=== PATIENT | male | born 1955 | race Caucasian/White ===

== ENCOUNTER 2021-01-21 10:35 | Observation (INO) | payer OTHER, MEDICARE, SELFPAY ==
[2021-01-21] VITALS (41 sets, daily range): BP systolic 128–238; BP diastolic 82–110; PULSE 73–103; RESP 7–31; TEMP 36.9–37.3; O2SAT 88–98; BMI 29.8
--- NOTE | 2021-01-21 10:52 | ECG_ITS ---
[facility] Test Date: 2021-01-21 Pat Name: Greg Duncan Department: Room: Gender: Male Living Skills Advisor: : 1955 Requested By: Moses Fong Order Number: [id number] Reading MD: LINDA NORTON Measurements Intervals [place] Rate: 81 P: 61 WI: 144 QRS: 53 QRSD: 92 T: 62 QT: 380 QTc: 442 Interpretive Statements SINUS RHYTHM MODERATE ST DEPRESSION [0.05+ mV ST DEPRESSION] Compared to ECG 11/04/2018 14:51:33 ST (T wave) deviation now present Intraventricular conduction delay no longer present Electronically Signed On 01-21-2021 18:45:02 DIRECTOR OF PRODUCT MANAGEMENT by LINDA NORTON [email or web address]/[id number] f
--- NOTE | 2021-01-21 10:52 | XRR_ITS ---
PROCEDURE INFORMATION: Exam: XR Chest Exam date and time: 01/21/2021 10:56 AM Age: 65 years old Clinical indication: Chest pain; Additional info: Dyspena cough TECHNIQUE: Imaging protocol: XR of the chest Views: 1 view. COMPARISON: CR Chest 1 [place] [id number] 10/10/2018 2:50 PM FINDINGS: Lungs: Unremarkable. No consolidation. Pleural spaces: Unremarkable. No pleural effusion. No pneumothorax. Heart/Mediastinum: Unremarkable. No cardiomegaly. Bones/joints: Unremarkable. XR/XR chest 1V portable [id number] IMPRESSION: No acute findings.
--- NOTE | 2021-01-21 11:08 | W.ED.CHESTPA ---
HPI - Chest Pain General: Chief Complaint: Chest Pain Stated Complaint: HTN, CP Time Seen by Provider: 01/21/21 10:45 History of Present Illness: HPI narrative: 85-year-old male presents emergency room with complaint of chest discomfort. He has has a history of elevated blood pressure recently. He previously has had a angioplasty with stenting this was done on 15 to 20 years ago. He has had a little bit of loose stool mostly states he just generally does not feel well. No vomiting. Denies significant shortness of breath. MD complaint: chest heaviness Pertinent past history: coronary artery disease Onset (ago): day(s) Relieving factors: nothing Exacerbating factors: nothing Associated symptoms: Reports dyspnea; Deny abdominal pain, diaphoresis, fever(s), leg edema, nausea, palpitations, sense of impending doom, syncope or vomiting Treatment prior to arrival: none Review of Systems Const: Denies: fever(s) or diaphoresis ENMT: Denies: throat pain, ear or mastoid pain, nasal discharge or nasal congestion Card: Denies: palpitations Resp: Reports: dyspnea GI: Denies: abdominal pain, nausea or vomiting : Denies: flank pain, dysuria, urinary frequency or urinary urgency Skin/Breast: Denies: rash or pruritus PFS ED PFSH: Medical History (Updated 01/23/21 @ 06:37 by Moses Casas DO) Atypical chest pain Coronary artery disease Elevated troponin Hypertensive urgency Physical Exam Const: COMMON NORMALS: no acute distress GENERAL APPEARANCE: cooperative and comfortable ORIENTATION/CONSCIOUSNESS: Yes awake, Yes oriented to person, Yes oriented to place and Yes oriented to time HENMT: COMMON NORMALS: normocephalic, atraumatic and hearing grossly normal bilaterally HEAD & SCALP: normocephalic and atraumatic Neck/C-Spine: COMMON NORMALS: no JVD Resp: COMMON NORMALS: normal respiratory effort, No retractions, No use of accessory muscles and clear to auscultation bilaterally AUSCULTATION: clear to auscultation bilaterally Cardio: COMMON NORMALS: no JVD, regular rate, regular rhythm and No murmurs present (Cardio) RATE: regular rate RHYTHM: regular rhythm GI: COMMON NORMALS: Soft to palpation and No hepatosplenomegaly present AUSCULTATION: Yes normoactive bowel sounds PALPATION: Yes Soft to palpation, No Tenderness to palpation present (GI), No Guarding due to palpation present (GI) and Yes No hepatosplenomegaly present Extremity: COMMON NORMALS: normal to inspection, capillary refill normal, no clubbing, cyanosis or edema, no calf tenderness and no pedal edema Neuro: SENSORIUM/ORIENTATION: Yes oriented to person, Yes oriented to place and Yes oriented to time Skin: COMMON NORMALS: no rashes or lesions noted GENERAL SKIN EXAM: no rashes or lesions noted Course Vital Signs: Vital signs: Vital Signs Temperature 97.8 F 01/22/21 16:00 Pulse Rate 77 01/22/21 16:00 Respiratory Rate 20 H 01/22/21 16:00 Blood Pressure 129/71 01/22/21 16:00 Pulse Oximetry 93 01/22/21 16:00 MDM - Chest Pain Lab Data: Labs: Lab Results 01/21/21 01/21/21 01/21/21 Range/Units 11:05 11:05 11:05 WBC 8.8 (4.0-10.0) 10^3/ uL RBC 4.20 (4.1-5.3) 10^6/u L Hgb 14.0 (11.7-16.6) g/dL Hct 40.6 L (42.0-52.0) % MCV 96.7 H (80-94) fL MCH 33.3 (28.0-34.0) pg MCHC 34.5 (30.0-36.0) g/dL RDW 14.2 (12.1-15.1) % Plt Count 225 (130-400) 10^3/c mm MPV 10.5 H (7.4-10.4) fL Neut % (Auto) 82.0 % Lymph % (Auto) 10.7 % [place] % (Auto) 5.9 % Eos % (Auto) 0.3 % Baso % (Auto) 0.9 % Neut # (Auto) 7.20 (1.8-7.7) 10^3/u L Lymph # (Auto) 0.9 (0.8-4.8) 10^3/u L [place] # (Auto) 0.5 (0.2-0.9) 10^3/u L Eos # (Auto) 0.0 (0.0-0.8) 10^3/u L Baso # (Auto) 0.1 (0.0-0.1) 10^3/u L Nucleated RBC % (a uto) 0 % Nucleated RBCs # 0.0 /100WBC Sodium 140 (136-145) mmol/L Potassium 4.1 (3.5-5.1) mmol/L Chloride 101 (98-107) mmol/L Carbon Dioxide 23 (22-29) mmol/L Anion Gap 20.1 H (5-19) BUN 9 (8-23) mg/dL Creatinine 0.9 (0.7-1.2) mg/dL GFR Calculation 84.7 L (90-130) mL/min Glucose 122 H (65-115) mg/dL Calculated Osmolal ity 290 (285-295) mOsm/k g Calcium 9.1 (8.5-10.5) mg/dL Total Bilirubin 0.6 (0.15-1.2) mg/dL AST 43 H (0-40) U/L ALT 48 H (0-41) U/L Alkaline Phosphata se 71 (40-130) IU/L Troponin T Baselin e 47 H (0-15) ng/L Troponin T 120 Min [place] (0-15) ng/L Delta Troponin T (0-10) ABS# Total Protein 6.7 (6.6-8.7) g/dL Albumin 4.2 (3.5-5.2) g/dL Globulin 2.5 (1.3-4.6) g/dL SARS-CoV-2 Ag (Rap id) (Negative) 01/21/21 01/21/21 Range/Units 11:09 13:03 WBC (4.0-10.0) 10^3/ uL RBC (4.1-5.3) 10^6/u L Hgb (11.7-16.6) g/dL Hct (42.0-52.0) % MCV (80-94) fL MCH (28.0-34.0) pg MCHC (30.0-36.0) g/dL RDW (12.1-15.1) % Plt Count (130-400) 10^3/c mm MPV (7.4-10.4) fL Neut % (Auto) % Lymph % (Auto) % [place] % (Auto) % Eos % (Auto) % Baso % (Auto) % Neut # (Auto) (1.8-7.7) 10^3/u L Lymph # (Auto) (0.8-4.8) 10^3/u L [place] # (Auto) (0.2-0.9) 10^3/u L Eos # (Auto) (0.0-0.8) 10^3/u L Baso # (Auto) (0.0-0.1) 10^3/u L Nucleated RBC % (a uto) % Nucleated RBCs # /100WBC Sodium (136-145) mmol/L Potassium (3.5-5.1) mmol/L Chloride (98-107) mmol/L Carbon Dioxide (22-29) mmol/L Anion Gap (5-19) BUN (8-23) mg/dL Creatinine (0.7-1.2) mg/dL GFR Calculation (90-130) mL/min Glucose (65-115) mg/dL Calculated Osmolal ity (285-295) mOsm/k g Calcium (8.5-10.5) mg/dL Total Bilirubin (0.15-1.2) mg/dL AST (0-40) U/L ALT (0-41) U/L Alkaline Phosphata se (40-130) IU/L Troponin T Baselin e (0-15) ng/L Troponin T 120 Min [place] 44.60 H (0-15) ng/L Delta Troponin T -2.40 L (0-10) ABS# Total Protein (6.6-8.7) g/dL Albumin (3.5-5.2) g/dL Globulin (1.3-4.6) g/dL SARS-CoV-2 Ag (Rap id) Negative (Negative) Discharge Plan Discharge Patient Disposition: Placed in Observation Admit Provider: German Martinez Clinical Impression: Accelerated hypertension, Chest pain, CAD (coronary artery disease) Coding Level of Care Code ED Periodicals Library Assistant for Ramog Fwd Exam Comprehensive
[2021-01-21 11:11] LABS: Basophils # 0.1 10^3/uL (0.0-0.1); Basophils % 0.9 %; Eosinophils % 0.3 %; Hematocrit 40.6 % (42.0-52.0); Lymphocytes # 0.9 10^3/uL (0.8-4.8); Lymphocytes % 10.7 %; Mean Corpuscular HGB Conc 34.5 g/dL (30.0-36.0); Mean Corpuscular Hemoglobin 33.3 pg (28.0-34.0); Mean Corpuscular Volume 96.7 fL (80-94); Mean Platelet Volume 10.5 fL (7.4-10.4); Monocytes # 0.5 10^3/uL (0.2-0.9); Monocytes % 5.9 %; Nucleated Red Blood Cells % 0 %; Platelet Count 225 10^3/cmm (130-400); Red Cell Distribution Width 14.2 % (12.1-15.1); White Blood Count 8.8 10^3/uL (4.0-10.0)
[2021-01-21 11:52] LABS: Alanine Aminotransferase 48 U/L (0-41); Albumin Level 4.2 g/dL (3.5-5.2); Alkaline Phosphatase 71 IU/L (40-130); Anion Gap 20.1 (5-19); Aspartate Amino Transferase 43 U/L (0-40); Blood Urea Nitrogen 9 mg/dL (8-23); Calcium 9.1 mg/dL (8.5-10.5); Carbon Dioxide 23 mmol/L (22-29); Chloride 101 mmol/L (98-107); Globulin 2.5 g/dL (1.3-4.6); Glomerular Filtration Rate 84.7 mL/min (90-130); Glucose 122 mg/dL (65-115); Osmolality Calculated 290 mOsm/kg (285-295); Potassium 4.1 mmol/L (3.5-5.1); Sodium 140 mmol/L (136-145); Total Bilirubin 0.6 mg/dL (0.15-1.2); Total Protein 6.7 g/dL (6.6-8.7)
[2021-01-21 11:55] LABS: Troponin(5th) Baseline 47 ng/L (0-15)
--- NOTE | 2021-01-21 12:29 | PC.NURSE ---
pt told staff that he felt sob and like he couldn't breathe well . Oxygenation 98% on room air. Pt wanting to use home inhalers. ER physician verbally gave ok.
[2021-01-21 12:40] LABS: SARS Covid-2 Antigen Negative (Negative)
--- NOTE | 2021-01-21 12:52 | ECG_ITS ---
[facility] Test Date: 2021-01-21 Pat Name: Greg Duncan Department: Room: Gender: Male Colorer Hides And Skins: : 1955 Requested By: Moses Fong Order Number: [id number] Reading MD: LINDA NORTON Measurements Intervals [place] Rate: 72 P: 61 CA: 161 QRS: 43 QRSD: 95 T: 46 QT: 403 QTc: 442 Interpretive Statements SINUS RHYTHM MODERATE ST DEPRESSION [0.05+ mV ST DEPRESSION] Compared to ECG 01/21/2021 10:42:00 No significant changes Electronically Signed On 01-21-2021 18:46:42 POURER OFF by LINDA NORTON [email or web address] [email or web address]'s choice medical center of smith countyAppetite+aultman hospitalOrtho-tag/store/OM/[id number]
[2021-01-21] MEDS: sodium chloride 0.9% 500 ML 999 ML IV (13:12)
[2021-01-21] MEDS: morphine 4 mg/mL SDV 1 mL IVP (14:16)
[2021-01-21] MEDS: metoprolol tartrate 1 mg/1 mL SDV 5 mL 5 MG IV (14:27)
[2021-01-21] MEDS: hyDRALAzine 20 mg/mL INJ 1 mL IVP (14:27)
[2021-01-21] MEDS: nicardipine 20 MG/200 ML PREMIX 50 MG IV (15:49)
[2021-01-21] MEDS: metoprolol succinate ER (24 HR) 50 mg Tablet PO (15:49)
[2021-01-21] MEDS: amlodipine 10 mg Tablet PO (15:50)
--- NOTE | 2021-01-21 16:04 | P.HP_ITS ---
Providers/Chief Complaint Admitting Physician: German Martinez MD Primary Care Provider: Baljeet Nieves Chief Complaint: HTN History of Present Illness Greg Duncan is a 65 year old male with past medical history of hypertension, coronary artery disease status post stent, was admitted with chief complaint of substernal chest pain, headache. Upon arrival in the ER he was worked up for above-mentioned complaint. He was found to have extremely high blood pressure highest recorded systolic blood pressure 238 and diastolic blood pressure 110. Troponin baseline: 47, 2-hour: 44 , delta 2 h: -2.40, troponin 6h : 41 delta 6- hour: -5.21 . EKG: Sinus rhythm with nonspecific ST-T changes. X-ray chest: No acute finding, no infiltrates, no pulmonary vascular congestion. ECA medication: Collagen 20 mg IV times 1 dose, metoprolol tartrate 5 mg IV x1 dose, metoprolol succinate 50 mg p.o. x1 dose, amlodipine 10 mg p.o. x1 dose. Morphine sulfate 4 mg IV times 1 dose. Review of Systems Const: Denies: fever(s) or chills Card: Denies: dyspnea on exertion, orthopnea or leg pain with exertion Resp: Denies: dyspnea, productive cough, wheezing or pain on inspiration GI: Denies: abdominal pain, nausea, vomiting, diarrhea or constipation Musc: Denies: back pain, extremity pain or extremity swelling Neuro: Denies: difficulty walking Medications/Allergies Home Medications Medication Instructions Recorded Confirmed Last Taken Type aspirin [Aspir-81] 81 mg PO ONCE 01/21/21 01/21/21 01/21/21 History budesonide-formoterol [Symbicort] 2 puff INHALATION BID 01/21/21 01/21/21 01/21/21 History cetirizine [Zyrtec] 10 mg PO DAILY@20 01/21/21 01/21/21 Unknown History gabapentin 800 mg PO TID@08,,01/21/21 01/21/21 01/21/21 08:00 History hydroxyzine HCl 25 mg PO TID PRN 01/21/21 01/21/21 01/21/21 History ipratropium-albuterol [Combivent 1 puff INHALATION QID PRN 01/21/21 01/21/21 01/21/21 History Respimat] metoprolol tartrate See Rx Instructions .ROUTE .COMPLEX 01/21/21 01/21/21 01/21/21 08:00 History mirtazapine 30 mg PO BEDTIME 01/21/21 01/21/21 Unknown History naproxen 250 mg PO BID PRN 01/21/21 01/21/21 01/21/21 History Allergies Allergy/AdvReac Type Severity Reaction Status Date / Time Penicillins Allergy ALGY-Anaphy Verified 01/21/21 11:57 laxis Vitals/I&O/Wt Last Vital Signs Temp 98.5 F 01/21/21 10:36 Pulse 82 01/21/21 15:59 Resp 16 01/21/21 15:59 BP 190/92 01/21/21 15:59 Pulse Ox 96 01/21/21 15:59 Weight last 48 hrs Weight 94.347 kg Physical Exam Narrative: EXAM NARRATIVE: Alert and awake. HENMT: COMMON NORMALS: normocephalic, atraumatic and external ears normal Chest: CHEST: Yes Symmetrical chest wall rise Resp: COMMON NORMALS: clear to auscultation bilaterally EFFORT & INSPECTION: Yes symmetric chest movement AUSCULTATION: clear to auscultation bilaterally Cardio: COMMON NORMALS: regular rate, regular rhythm, S1 normal heart sound p resent, S2 normal heart sound present, No gallops present (Cardio), No murmurs present (Cardio), No rub (Cardio) and Peripheral pulses 2+ throughout RATE: regular rate RHYTHM: regular rhythm HEART SOUNDS: S1 normal heart sound present and S2 normal heart sound present PERIPHERAL PULSES: Peripheral pulses 2+ throughout GI: AUSCULTATION: Yes normoactive bowel sounds PALPATION: Yes Soft to palpation and Yes No hepatosplenomegaly present RECTAL EXAM: Yes deferred Extremity: COMMON NORMALS: no clubbing, cyanosis or edema and no pedal edema Data : 01/21/21 11:05 01/21/21 11:05 A&P Assessment and plan (1) Hypertensive urgency: Amlodipine 10 mg p.o. Hydralazine 25 mg p.o. TID Monitor blood pressure 2D echo Status: Acute (2) Elevated troponin: Likely Type II M.I Status: Acute (3) Atypical chest pain: Atypical chest pain likely musculoskeletal. Status: Acute (4) Coronary artery disease: History of coronary artery disease status post. No acute intervention needed at this time Status: Acute Additional A&P Information DVT prophylaxsis: Lovenox 40 subcu daily CODE STATUS: Full code Attestations Medical Necessity Statement*: Patient needs to be in hospital for management of hypertensive urgency. Anticipated length of stay less than 2 midnights. Coding Level of Care Code Acute Bonded Strand Operator for Ramog Fwd Diagnoses Hypertensive urgency I16.0 Elevated troponin R77.8 Atypical chest pain R07.89 Coronary artery disease I25.10
--- NOTE | 2021-01-21 16:52 | ECG_ITS ---
[facility] Test Date: 2021-01-21 Pat Name: Greg Duncan Department: Room: 107 Gender: Male Atmospheric Chemist: : 1955 Requested By: Moses Fong Order Number: [id number] Reading MD: LINDA NORTON Measurements Intervals [place] Rate: 90 P: 58 RI: 157 QRS: 47 QRSD: 98 T: 60 QT: 386 QTc: 473 Interpretive Statements SINUS RHYTHM ST DEVIATION AND MODERATE T-WAVE ABNORMALITY, CONSIDER ANTERIOR ISCHEMIA [-0.1+ mV T WAVE IN V3/V4] Compared to ECG 01/21/2021 13:21:37 T-wave abnormality now present Possible ischemia now present ST (T wave) deviation no longer present Electronically Signed On 01-21-2021 18:46:26 COOPER HELPER by LINDA NORTON [email or web address] general hospitalCubiclregency hospital cleveland west.[employer]/store/OM/[id number]
--- NOTE | 2021-01-21 17:17 | PC.NURSE ---
FROM ER Received pt from ER via stretcher. Pt is alert, awake, oriented x4. Pt looked anxious and shaking. CIWA assessment score is 11. Nicardipine drip running from ER at 5 mg/hr on left AC. Pt stated his having difficulty urinating and pain when he urinates for the past day or 2. He felt pressure on his abdomen. Noted pt abdomen is distended and tight. Bladder scan and noted 350 in the scanner. Educated pt on the possibility of urine retention and if he agrees to have abernathy catheter inserted. pt verbalizes understanding and agreed for abernathy insertion. Notified Dr. Martinez on pt's difficulty urinating and the his bladder scan result. Notified him on pt's anxiety, distended abdomen. Received order read back to insert abernathy cath. and to give standing order for Ativan for [place]. oriented pt to staff. Provided pt with his call light use.
[2021-01-21] MEDS: LORazepam 2 mg Tablet PO ×2 (17:37→23:00)
[2021-01-21] MEDS: enoxaparin 40 mg/0.4 mL Syringe SUBCUT (17:55)
[2021-01-21] MEDS: oxyCODONE-APAP 5-325 mg Tablet 1 TAB PO ×2 (18:42→23:00)
--- NOTE | 2021-01-21 19:36 | PC.NURSE ---
Received report from YEIMI Guzmán. Patient resting in bed awake. Discussed COVID precautions and patient verbalized understanding stating, I have not been around anyone. Patient also stated, I have had several family members from COVID. Cardene drip running at 50ml/hr. BP monitored every 15min. Discussed goal of Cardene with patient and patient again verbalized understanding. Patient has abernathy catheter with pale, urine noted presently. Patient appears nervous but is pleasant and cooperative. Patient denies other needs. Has been medicated for pain and anxiety. No other distress observed.
[2021-01-21 20:02] LABS: Troponin 5 6HR 41.29 ng/L (0-15)
[2021-01-21 20:08] LABS: Troponin 5 6HR Delta -5.21 ng/L (0-12)
--- NOTE | 2021-01-21 20:17 | PC.NURSE ---
Current BP 128/87. Stopped Cardene drip for now. Will give HS medications and continue to monitor BP every 15 minutes. Patient tremors gone and reports feeling some relaxed. No distress observed.
[2021-01-21] MEDS: mirtazapine 30 mg Tablet PO (20:31)
[2021-01-21] MEDS: hyDRALAzine 25 mg Tablet PO (20:31)
[2021-01-21] MEDS: gabapentin 400 mg Capsule 800 MG PO (20:31)
[2021-01-21] MEDS: hyDROXYzine 25 mg Capsule PO (20:32)
[2021-01-22] VITALS (66 sets, daily range): BP systolic 71–196; BP diastolic 42–111; PULSE 72–102; RESP 5–28; TEMP 36.3–37.1; O2SAT 85–96
[2021-01-22] MEDS: nicardipine 20 MG/200 ML PREMIX 30 MG IV ×2 (02:07→05:47)
--- NOTE | 2021-01-22 02:13 | PC.NURSE ---
Patient c/o indigestion. Informed Dr Sequeira and received telephone orders for Maalox 15ml PO q4hr PRN and Pepcid 20mg PO bid. RBVO.
[2021-01-22] MEDS: alum-mag-hydroxide-sime 30 mL UDC 15 ML PO (02:18)
--- NOTE | 2021-01-22 02:21 | PC.NURSE ---
Patient c/o abdomen feeling real tight and distended. Patient reports having a bowel movement yesterday and says he pretty regular. Abdomen firm on palpation. Kaiser catheter in place. Patient reports feeling pressure on his bladder as well. Kaiser is draining clear straw colored urine. Patient reports craving ice which has been given to patient several times through out the night.
[2021-01-22] MEDS: LORazepam 2 mg Tablet PO (04:45)
[2021-01-22] MEDS: ondansetron 2 mg/ML SDV 2 mL 4 MG IVP (04:45)
--- NOTE | 2021-01-22 04:48 | PC.NURSE ---
Patient c/o nausea with vomiting. Patient has had one episode of vomiting with light brown, undigested food. Patient SBP 140s to mid 160s. Cardene drip at 7.5mg/hr. Monitoring BP every 15min presently. Medication given as ordered for nausea and per CIWA assessment.
[2021-01-22 05:31] LABS: Basophils # 0.1 10^3/uL (0.0-0.1); Basophils % 0.7 %; Eosinophils # 0.1 10^3/uL (0.0-0.8); Eosinophils % 1.2 %; Hematocrit 43.7 % (42.0-52.0); Hemoglobin 14.3 g/dL (11.7-16.6); Lymphocytes # 1.3 10^3/uL (0.8-4.8); Lymphocytes % 19.6 %; Mean Corpuscular HGB Conc 32.7 g/dL (30.0-36.0); Mean Corpuscular Hemoglobin 32.9 pg (28.0-34.0); Mean Corpuscular Volume 100.5 fL (80-94); Mean Platelet Volume 11.9 fL (7.4-10.4); Monocytes # 0.6 10^3/uL (0.2-0.9); Neutrophils # 4.68 10^3/uL (1.8-7.7); Neutrophils % 69.4 %; Nucleated Red Blood Cells % 0 %; Platelet Count 155 10^3/cmm (130-400); Red Blood Count 4.35 10^6/uL (4.1-5.3); Red Cell Distribution Width 14.6 % (12.1-15.1); White Blood Count 6.8 10^3/uL (4.0-10.0)
[2021-01-22 06:05] LABS: Alanine Aminotransferase 43 U/L (0-41); Albumin Level 4.4 g/dL (3.5-5.2); Alkaline Phosphatase 73 IU/L (40-130); Anion Gap 15.5 (5-19); Aspartate Amino Transferase 40 U/L (0-40); Blood Urea Nitrogen 10 mg/dL (8-23); Calcium 9.7 mg/dL (8.5-10.5); Carbon Dioxide 28 mmol/L (22-29); Chloride 95 mmol/L (98-107); Chol HDL Ratio 4.24 mg/dL (1.0-5.00); Cholesterol 195 mg/dL (0-200); Glomerular Filtration Rate 84.7 mL/min (90-130); Glucose 115 mg/dL (65-115); HDL Cholesterol 46 mg/dL (60-100); LDL Cholesterol Calculated 95 mg/dL (50-129); LDL HDL Ratio 2.07 RATIO (0.00-3.22); Osmolality Calculated 280 mOsm/kg (285-295); Potassium 3.5 mmol/L (3.5-5.1); Sodium 135 mmol/L (136-145); Thyroid Stimulating Hormone 2.19 uIU/mL (0.27-4.20); Total Protein 7.4 g/dL (6.6-8.7); Triglycerides 272 mg/dL (0-150)
[2021-01-22] MEDS: tamsulosin 0.4 mg Capsule PO (08:28)
[2021-01-22] MEDS: hyDROXYzine 25 mg Capsule PO (08:28)
[2021-01-22] MEDS: metoprolol tartrate 50 mg Tablet PO (08:28)
[2021-01-22] MEDS: gabapentin 400 mg Capsule 800 MG PO (08:29)
[2021-01-22] MEDS: famotidine 20 mg Tablet PO (08:29)
[2021-01-22] MEDS: hyDRALAzine 25 mg Tablet PO ×2 (08:29→15:31)
--- NOTE | 2021-01-22 12:16 | USCV_ITS ---
Greg Duncan Age: 65 Gender: M : 1955 Exam Date: 01/22/2021 13:08 Ordering Phys: German Martinez MD Technologist: Jes Oropeza Exam Location: [facility] Indication: Chest pain BP: 125 / 78 HR: 84 Rhythm: Sinus Technical Quality: Fair MEASUREMENTS (Male / Female) Normal Values 2D ECHO LV Diastolic Diameter PLAX 3.7 cm 4.2 - 5.9 / 3.9 - 5.3 cm LV Systolic Diameter PLAX 2.1 cm LV Chamber Size 3.7 cm IVS Diastolic Thickness 1.3 cm 0.6 - 1.0 / 0.6 - 0.9 cm IVS Systolic Thickness 1.9 cm LVPW Diastolic Thickness 1.1 cm 0.6 - 1.0 / 0.6 - 0.9 cm LVPW Systolic Thickness 1.1 cm RV Chamber Size 1.8 cm LVOT Diameter 2.0 cm LV Ejection Fraction 2D Teich 76.6 % LV Ejection Fraction MOD 2C 63.1 % LV Ejection Fraction 2C AL 63.7 % LA Diameter 2.3 cm LA Width 2.8 cm LA Height 4.6 cm RA Width 2.4 cm RA Height 4.8 cm Aorta at Sinotubular Diameter 2.2 cm M-MODE LV Diastolic Diameter MM 6.6 cm 4.2 - 5.9 / 3.9 - 5.3 cm LV Systolic Diameter MM 4.4 cm LV Ejection Fraction MM Teich 59.5 % IVS Diastolic Thickness MM 0.7 cm 0.6 - 1.0 / 0.6 - 0.9 cm IVS Systolic Thickness MM 1.2 cm LVPW Diastolic Thickness MM 1.0 cm 0.6 - 1.0 / 0.6 - 0.9 cm LVPW Systolic Thickness MM 1.6 cm RV Diastolic Diameter MM 0.6 cm Aortic Annulus Diameter 3.0 cm LA Ao Ratio MM 0.9 MV E Point Septal Separation 0.6 cm DOPPLER AV Peak Velocity 171.0 cm/s LVOT Peak Velocity 118.0 cm/s AV Area Cont Eq vti 2.6 cm squared AV Area Cont Eq pk 2.1 cm squared MV Area PHT 3.7 cm squared Mitral E to A Ratio 0.9 MV E' Velocity 44.0 cm/s Mitral E to MV E' Ratio 9.2 Mitral E to LV E' Lateral Ratio 8.0 Mitral E to LV E' Septal Ratio 10.7 TV Peak E Velocity 57.0 cm/s PV Peak Velocity 80.0 cm/s RV Acceleration Time 0.1 s RV Ejection Time 0.3 s RV AcT/ET 0.3 FINDINGS Left Ventricle Normal left ventricular cavity size. Normal left ventricular systolic function. No regional wall motion abnormalities. Left ventricular ejection fraction is estimated at 59 %. Grade I/IV diastolic dysfunction (abnormal relaxation filling pattern), normal to mildly elevated filling pressures. Right Ventricle The right ventricle is normal in size and function. Right Atrium The right atrium is normal in size. Left Atrium The left atrium is normal in size. Mitral Valve Structurally normal mitral valve without significant stenosis or prolapse. There is no mitral regurgitation. Aortic Valve Aortic valve sclerosis without stenosis or regurgitation. Tricuspid Valve Structurally normal tricuspid valve without significant stenosis or regurgitation. Pulmonary artery systolic pressure is normal. Pulmonic Valve Structurally normal pulmonic valve without significant stenosis. There is no pulmonic regurgitation. Pericardium Normal pericardium without effusion. Aorta Normal ascending aorta dimension. CONCLUSIONS 1-Normal left ventricular cavity size. Normal left ventricular systolic function. No regional wall motion abnormalities. Left ventricular ejection fraction is estimated at 59 %. Grade I/IV diastolic dysfunction (abnormal relaxation filling pattern), normal to mildly elevated filling pressures. 2-There is no pericardial effusion. 3-No significant valve abnormalities. 4-Right atrial pressure is around 5 mm of mercury. 5-No significant change since the prior echocardiogram study of 10/11/2018. Jacqueline Walker MD (Electronically Signed) Final Date: 22 January 2021 15:00 S
--- NOTE | 2021-01-22 13:17 | PC.NURSE ---
removed abernathy at 1300, intact, no issues
--- NOTE | 2021-01-22 15:29 | PM.DCS ---
Discharge Providers Date of Admission: 01/21/21 15:43 Date of Discharge: January 22, 2021 Attending Provider at Admission: German Martinez MD Attending Provider at Discharge: German Martinez MD Primary Care Provider: Baljeet Nieves Diagnoses at Discharge Discharge Diagnosis (1) Hypertensive urgency: Permanent problem details: Resolved (2) Elevated troponin: (3) Atypical chest pain: (4) Coronary artery disease: Reason for Visit Reason for Visit: HTN Hospital Course Hospital Course Greg Duncan is a 65 year old male with past medical history of hypertension, coronary artery disease status post stent, was admitted with chief complaint of substernal chest pain, headache. Upon arrival in the ER he was worked up for above-mentioned complaint. He was found to have extremely high blood pressure highest recorded systolic blood pressure 238 and diastolic blood pressure 110. Troponin baseline: 47, 2-hour: 44 , delta 2 h: -2.40, troponin 6h : 41 delta 6-hour: -5.21 . EKG: Sinus rhythm with nonspecific ST-T changes. X-ray chest: No acute finding, no infiltrates, no pulmonary vascular congestion. ECA medication: Hydralazine 20 mg IV times 1 dose, metoprolol tartrate 5 mg IV x1 dose, metoprolol succinate 50 mg p.o. x1 dose, amlodipine 10 mg p.o. x1 dose. Morphine sulfate 4 mg IV times 1 dose.He was admitted for the management of Hypertensive urgency as well as chest pain.He was continued on nicardipine drip and was later transitioned to PO amlodipine 10 mg oral daily on discharge as well as metroprolol succinate 50 mg po daily on discharge.While inpatient 2D Echo was done as a part of chest pain work up: Normal left ventricular cavity size. Normal left ventricular systolic function. No regional wall motion abnormalities. Left ventricular ejection fraction is estimated at 59 %. Grade I/IV diastolic dysfunction (abnormal relaxation filling pattern), normal to mildly elevated filling pressures. There is no pericardial effusion. No significant valve abnormalities. Right atrial pressure is around 5 mm of mercury. U/S Abdomen was also done as he was complaining of episatric discomfort: Hepatic steatosis. Echogenic foci in the lower kidneys, likely representing nonobstructing stones.At the time of discharge he was not complaining of any chest pain.It is likely that the chest pain was atypical or 2/2 to demand ischemia due to accelerated hypertension. His blood pressure was well controlled on discharge.Rapid COVID Testing was negative.He was discharged in stable condition to follow up with his PCP as outpatient. Physical Exam Narrative: EXAM NARRATIVE: Alert and awake. HENMT: COMMON NORMALS: normocephalic, atraumatic and external ears normal HEAD & SCALP: normocephalic and atraumatic EXTERNAL EAR: Yes external ears normal Chest: CHEST: Yes Symmetrical chest wall rise Resp: COMMON NORMALS: clear to auscultation bilaterally EFFORT & INSPECTION: Yes symmetric chest movement AUSCULTATION: clear to auscultation bilaterally Cardio: COMMON NORMALS: regular rate, regular rhythm, S1 normal heart sound present, S2 normal heart sound present, No gallops present (Cardio), No murmurs present (Cardio), No rub (Cardio) and Peripheral pulses 2+ throughout RATE: regular rate RHYTHM: regular rhythm HEART SOUNDS: S1 normal heart sound present and S2 normal heart sound present PERIPHERAL PULSES: Peripheral pulses 2+ throughout GI: COMMON NORMALS: Soft to palpation and No hepatosplenomegaly present AUSCULTATION: Yes normoactive bowel sounds PALPATION: Yes Soft to palpation and Yes No hepatosplenomegaly present RECTAL EXAM: Yes deferred Extremity: COMMON NORMALS: no clubbing, cyanosis or edema and no pedal edema Urinary Catheter Management^: [facility] Late[employer] Free: Cath Placed During This Visit: yes Reason for Continuing Indwelling Catheter: Acute Urinary Retention or Obstruction Urinary Catheter Date of Insertion: 01/21/21 Urinary Catheter Time of Insertion: 19:30 Discharge Data Data Completed and Pending: Completed Studies During Hospitalization Category Date Time Status XR chest 1V [place] ble [id number] Stat Exams 01/21/21 10:52 Completed CV echo complete* [id number] Routine Ultrasound 01/22/21 12:16 Completed US abdomen comple te* [id number] Routine Ultrasound 01/22/21 18:10 Completed Pending at discharge Category Date Time Status Complete Blood Co unt w/Auto AM LABS Lab 01/23/21 04:00 Ordered Complete Blood Co unt w/Auto AM LABS Lab 01/24/21 04:00 Ordered Comprehensive Met abolic Panel AM LA BS Lab 01/23/21 04:00 Ordered Comprehensive Met abolic Panel AM LA BS Lab 01/24/21 04:00 Ordered Coronavirus Test [facility] Lab 01/21/21 13:15 Received Labs from last 24 hours 01/22/21 01/22/21 01/21/21 04:21 04:21 19:15 WBC 6.8 RBC 4.35 Hgb 14.3 Hct 43.7 MCV 100.5 H MCH 32.9 MCHC 32.7 D RDW 14.6 Plt Count 155 MPV 11.9 H Neut % (Auto) 69.4 Lymph % (Auto) 19.6 Louisa % (Auto) 9.0 Eos % (Auto) 1.2 Baso % (Auto) 0.7 Neut # (Auto) 4.68 Lymph # (Auto) 1.3 [place]a # (Auto) 0.6 Eos # (Auto) 0.1 Baso # (Auto) 0.1 Nucleated RBC % (a uto) 0 Nucleated RBCs # 0.0 Sodium 135 L Potassium 3.5 Chloride 95 L Carbon Dioxide 28 Anion Gap 15.5 BUN 10 Creatinine 0.9 GFR Calculation 84.7 L Glucose 115 Calculated Osmolal ity 280 L Calcium 9.7 Total Bilirubin 1.0 AST 40 ALT 43 H Alkaline Phosphata se 73 Troponin T Hi Sens 6Hr 41.29 H Troponin T Hi Sens 6Hr Delta -5.21 L Total Protein 7.4 Albumin 4.4 Globulin 3.0 Triglycerides 272 H Cholesterol 195 LDL Cholesterol, C alc 95 HDL Cholesterol 46 L LDL/HDL Ratio 2.07 Cholesterol/HDL Ra felisha 4.24 TSH 2.19 Vitals: Last Vital Signs Temp 97.8 F 01/22/21 14:54 Pulse 77 01/22/21 14:54 Resp 20 H 01/22/21 14:54 BP 129/71 01/22/21 14:54 Pulse Ox 93 01/22/21 14:54 Discharge Plan Discharge Patient Disposition: Home Condition: Stable Prescriptions: New amlodipine 10 mg tablet 10 mg PO DAILY Qty: 30 RF: 0 metoprolol succinate 50 mg tablet extended release 24 hr 50 mg PO DAILY Qty: 30 RF: 0 Continued Zyrtec 10 mg Tablet 10 mg PO DAILY@20 RF: 0 naproxen 250 mg Tablet 250 mg PO BID PRN (Reason: Pain) RF: 0 aspirin 81 mg Tablet,Delayed Release (Dr/Ec) 81 mg PO ONCE RF: 0 gabapentin 800 mg Tablet 800 mg PO TID@08,12,20 RF: 0 mirtazapine 30 mg Tablet 30 mg PO BEDTIME RF: 0 hydroxyzine HCl 25 mg Tablet 25 mg PO TID PRN (Reason: Anxiety) RF: 0 Symbicort 160-4.5 mcg/actuation Hfa Aerosol Inhaler 2 puff INHALATION BID RF: 0 Combivent Respimat 20-100 mcg/actuation Mist 1 puff INHALATION QID PRN (Reason: Shortness Of Breath) RF: 0 Discontinued metoprolol tartrate 100 mg Tablet See Rx Instructions .ROUTE .COMPLEX RF: 0 Discharge Orders: Discharge Order (Routine); Ordered 01/22/21 Ordered By: German Martinez Referrals: Baljeet Nieves [Primary Care Provider] - 4-7 days (Please call [facility] for an follow-up appointment in 4 to 7 days. ) Discharge Diet: Low Salt Discharge Activity: Resume usual activity Patient Instructions: Metoprolol (By mouth), Amlodipine (By mouth), Coronary Artery Disease (DC), Hypertension (DC), Chest Pain Stoplight Discharge Attestations Time Spent in Discharge Care*: less than 30 min Specific Discharge Activities: educating patient, educating and/or supporting family/caregiver, discussing with case packer and sealer/social workers/dc planners, documenting/other paperwork and evaluating patient/reviewing data Status at Discharge: Cognitive status at discharge: cognitively intact, Behavioral status at discharge: cooperative, Functional status at discharge: independent ambulation Overall status at discharge: patient is back to baseline Quality Metrics Clinical Quality Measures During this hospital stay, did patient experience: None Coding Level of Care Code Acute Waiter/Waitress Head for Lucio Cook Diagnoses Hypertensive urgency I16.0 Elevated troponin R77.8 Atypical chest pain R07.89 Coronary artery disease I25.10
--- NOTE | 2021-01-22 16:30 | PC.NURSE ---
Patient removed own IV from the left arm. Site was oozing bright red blood and patient was using a paper towel to dab at site. I applied a dressing and coban to site.
--- NOTE | 2021-01-22 18:10 | USR_ITS ---
PROCEDURE INFORMATION: Exam: US Abdomen Complete Exam date and time: 01/22/2021 7:43 AM Age: 65 years old Clinical indication: Abdominal pain; Epigastric; Additional info: Episatric tenderness TECHNIQUE: Imaging protocol: Real-time ultrasound of the abdomen with image documentation. COMPARISON: No relevant prior studies available. FINDINGS: Liver: The left hepatic lobe is partially obscured by overlying bowel gas. Liver is diffusely increased in echogenicity, most commonly seen in hepatic steatosis, though other forms of parenchymal liver disease could have a similar appearance. This limits evaluation for subtle isoechoic masses but no masses are seen. Patent main portal vein with normal direction of flow. Gallbladder: Normal. No gallstones. There is no gallbladder wall thickening. Negative sonographic Avendano's sign. Common bile duct: Normal. No stones. No dilation. Pancreas: The pancreas is obscured by overlying bowel gas. Right kidney: Normal echogenicity. There is a small echogenic focus in the right lower kidney, which may represent a nonobstructing stone. No mass. No hydronephrosis. Left kidney: Normal echogenicity. There is a small echogenic foci in the left lower kidney, which may represent nonobstructing stones. No mass. No hydronephrosis. Spleen: Normal. No splenomegaly. Inferior vena cava: Normal. US/US abdomen complete* [id number] IMPRESSION: 1. Hepatic steatosis. 2. Echogenic foci in the lower kidneys, likely representing nonobstructing stones.
[2021-01-23 16:51] LABS: Coronavirus Test Green County Not Detected
== END 2021-01-22 16:45 | disposition home or self-care (01) ==
LOC: ER 11:40 → CSU 01-22 06:35
PROVIDERS: Admitting Provider Internal Medicine; Emergency Provider Family Medicine; PCP Family Medicine; Visit Provider Internal Medicine
DX: I16.0 Hypertensive urgency (principal); R77.8 Other specified abnormalities of plasma proteins; R07.89 Other chest pain; I25.10 Atherosclerotic heart disease of native coronary artery without angina pectoris; Z95.5 Presence of coronary angioplasty implant and graft
CPT/HCPCS: 36415; 51702; 51798; 71045; 76700; 80053; 80061; 84443; 84484; 85025; 87426; 87635; 93005; 93306; 94640; 94664; 96365; 96372; 96375; 99285; G0378; J0360; J1650; J2270; J2405; J3490; J7040

== ENCOUNTER → 2021-03-23 09:33 | Outpatient (BNVA) | payer OTHER, SELFPAY | PROVIDERS: PCP Family Medicine; Visit Provider Internal Medicine Critical Care Medicine | DX: Z20.822 Contact with and (suspected) exposure to COVID-19 (principal); Z11.52 Encounter for screening for COVID-19 | CPT/HCPCS: 87635 ==

== ENCOUNTER 2021-03-29 08:30 | Outpatient (CLI) | payer OTHER, MEDICARE, SELFPAY ==
--- NOTE | 2021-03-29 14:44 | PFTS_ITS ---
Date of Study:03/29/21 Date of Dictation: 03/31/2021 MECHANICS: Postbronchodilator forced vital capacity (FVC) is normal. Postbronchodilator forced expiratory volume in one second (FEV1) is mildly reduced 81%. FEV1/FVC is reduced.. There is significant response to bronchodilators.. FLOW VOLUME LOOP: Sloping of expiratory limb suggestive of airway obstruction . LUNG VOLUMES: Total lung capacity (TLC) is normal. Residual volume (RV) is increased to 192% suggestive of severe air trapping DIFFUSING CAPACITY FOR CARBON MONOXIDE: Mild reduction in gas transfer 69% . INTERPRETATION: The PFTs are consistent with mild obstructive ventilatory defect. There is significant bronchodilator response. Lung volumes show severe air trapping and hyperinflation. There is mild gas transfer defect. Correlate clinically. MTDD
== END 2021-03-29 08:31 | disposition home or self-care (01) ==
LOC: RT 08:33
PROVIDERS: PCP Family Medicine; Visit Provider Internal Medicine Critical Care Medicine
DX: Z12.2 Encounter for screening for malignant neoplasm of respiratory organs (principal); F17.210 Nicotine dependence, cigarettes, uncomplicated
CPT/HCPCS: 94060; 94726; 94729; J7611

== ENCOUNTER → 2022-09-04 08:08 | Outpatient (BNVA) | payer OTHER, SELFPAY | PROVIDERS: PCP Family Medicine; Visit Provider Internal Medicine Rheumatology | DX: M15.9 Polyosteoarthritis, unspecified (principal); Z79.899 Other long term (current) drug therapy; M06.041 Rheumatoid arthritis without rheumatoid factor, right hand; M06.042 Rheumatoid arthritis without rheumatoid factor, left hand; Z11.59 Encounter for screening for other viral diseases; Z11.1 Encounter for screening for respiratory tuberculosis; Z79.52 Long term (current) use of systemic steroids; Z71.85 Encounter for immunization safety counseling | CPT/HCPCS: 96372; 99204; J1030 ==

== ENCOUNTER → 2023-02-04 14:33 | Outpatient (BNVA) | payer OTHER, SELFPAY | PROVIDERS: PCP Family Medicine; Visit Provider Internal Medicine Rheumatology | DX: M06.041 Rheumatoid arthritis without rheumatoid factor, right hand (principal); M06.042 Rheumatoid arthritis without rheumatoid factor, left hand; Z79.899 Other long term (current) drug therapy; Z71.85 Encounter for immunization safety counseling; Z79.52 Long term (current) use of systemic steroids | CPT/HCPCS: 99214 ==

== ENCOUNTER → 2023-02-25 14:47 | Outpatient (BNVA) | payer OTHER, SELFPAY | PROVIDERS: PCP Family Medicine; Visit Provider Internal Medicine Pulmonary Disease | DX: J42 Unspecified chronic bronchitis (principal); F17.210 Nicotine dependence, cigarettes, uncomplicated; Z71.85 Encounter for immunization safety counseling; Z87.09 Personal history of other diseases of the respiratory system; R09.82 Postnasal drip | CPT/HCPCS: 99214 ==

== ENCOUNTER → 2023-06-05 14:03 | Outpatient (BNVA) | payer OTHER, SELFPAY | PROVIDERS: PCP Family Medicine; Visit Provider Internal Medicine Rheumatology | DX: M06.041 Rheumatoid arthritis without rheumatoid factor, right hand (principal); M06.042 Rheumatoid arthritis without rheumatoid factor, left hand; Z79.899 Other long term (current) drug therapy; Z71.85 Encounter for immunization safety counseling | CPT/HCPCS: 99214 ==

== ENCOUNTER 2023-07-12 05:29 | Inpatient (IN) | payer OTHER, SELFPAY ==
[2023-07-12] VITALS (8 sets, daily range): BP systolic 153–186; BP diastolic 85–101; PULSE 89–99; RESP 18–22; TEMP 36.6–37; O2SAT 96–99; BMI 22.9
--- NOTE | 2023-07-12 05:46 | ECG_ITS ---
[facility] Test Date: 2023-07-12 Pat Name: Greg Duncan Department: Room: Gender: Male Wildfire Prevention Specialist: : 1955 Requested By: Shavonne Jeffries Order Number: [id number] Kimmie MD: Stephane Campuzano M.D. Measurements Intervals [place] Rate: 93 P: 77 LA: 143 QRS: 46 QRSD: 88 T: 58 QT: 347 QTc: 433 Interpretive Statements SINUS RHYTHM POSSIBLE LEFT ATRIAL ENLARGEMENT [-0.1mV P-WAVE IN V1/V2] POSSIBLE RIGHT VENTRICULAR CONDUCTION DELAY [RSR (QR) IN V1/V2] Compared to ECG 01/21/2021 16:49:10 T-wave abnormality no longer present Possible ischemia no longer present Electronically Signed On 07-12-2023 18:12:42 CDT by Stephane Campuzano M.D. [email or web address]
[2023-07-12 05:56] LABS: Basophils # 0.1 10^3/uL (0.0-0.1); Basophils % 1.2 %; Eosinophils # 0.1 10^3/uL (0.0-0.8); Eosinophils % 0.6 %; Hematocrit 48.7 % (37-53); Lymphocytes # 2.2 10^3/uL (0.8-4.8); Lymphocytes % 20.8 %; Mean Corpuscular HGB Conc 33.7 g/dL (30-55); Mean Corpuscular Hemoglobin 30.6 pg (27-33); Mean Corpuscular Volume 90.9 fl (82-101); Mean Platelet Volume 10.6 fL (7.4-10.4); Monocytes # 0.6 10^3/uL (0.2-0.9); Monocytes % 5.5 %; Neutrophils # 7.56 10^3/uL (1.8-7.7); Neutrophils % 71.6 %; Nucleated Red Blood Cells % 0 %; Platelet Count 236 10^3/cmm (157-399); Red Blood Count 5.36 10^6/uL (3.85-5.65); Red Cell Distribution Width 14.1 % (12.1-15.1); White Blood Count 10.56 10^3/uL (3.29-11.43)
[2023-07-12 06:13] LABS: Alanine Aminotransferase 38 U/L (0-41); Albumin Level 4.9 g/dL (3.5-5.2); Alcohol Level 151 mg/dL (0-10); Alkaline Phosphatase 101 U/L (40-130); Aspartate Amino Transferase 36 U/L (0-40); Blood Urea Nitrogen 12 mg/dL (8-23); Calcium 9.4 mg/dL (8.5-10.5); Carbon Dioxide 21 mmol/L (22-29); Chloride 103 mmol/L (98-107); Globulin 3.2 g/dL (1.3-4.6); Glomerular Filtration Rate 74.3 mL/min (90-130); Glucose 110 mg/dL (65-115); Osmolality Calculated 294 mOsm/kg (285-295); Sodium 142 mmol/L (136-145); Total Bilirubin 0.3 mg/dL (0.15-1.2); Total Protein 8.1 g/dL (6.6-8.7)
[2023-07-12 06:16] LABS: Acetaminophen < 5.0 ug/mL (10-30); Anion Gap 22.3 (5-19); Potassium 4.3 mmol/L (3.5-5.1); Salicylate < 0.3 mg/dL (3-10)
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
--- NOTE | 2023-07-12 07:12 | DCPLANNER ---
I spoke with Asiya with Timmy Chang MD psych at 0713 am. [facility] [phone].
[2023-07-12 07:13] LABS: SARS Covid-2 Antigen negative (Negative)
--- NOTE | 2023-07-12 07:34 | PC.NURSE ---
PATIENT WOUND ON LEFT FOREARM. WOUND CLEANED AND DEBRIED. PATIENT HAS NO FURTHER NEEDS AT THIS TIME.
--- NOTE | 2023-07-12 08:11 | XR_ITS ---
WS: [id number] EXAMINATION: XR chest 1V portable [id number] REASON FOR EXAM: PAIN COMPARISON: 01/21/2021 ORDER DATE: 07/12/2023 8:15 AM TECHNIQUE: A single, portable frontal chest x-ray was obtained. X-RAY FINDINGS: The lungs are clear. Pleural spaces are clear. No pleural effusions or pneumothorax. Cardiomediastinal silhouette is unremarkable except for atherosclerotic aortic change.. No evidence f or pulmonary edema. Soft tissue and osseous structures are unremarkable except for some old rib fractures on the right. No tubes or lines are present. IMPRESSION: Unremarkable frontal portable chest x-ray.
[2023-07-12] MEDS: ipratropium-albuterol 3 mL Neb INHALATION ×2 (08:28→20:23)
[2023-07-12 10:41] LABS: Amphetamines Screen Urine Negative (Negative); Barbiturates Screen Urine Negative (Negative); Benzodiazepines Screen Urine Negative (Negative); Cocaine Screen Urine Negative (Negative); Opiate Screen Urine Negative (Negative); PCP Screen Urine Negative (Negative); THC Screen Urine Positive (Negative)
--- NOTE | 2023-07-12 14:50 | PC.NURSE ---
NURSE ENTERED PATIENT ROOM TO FIND PATIENT WITHOUT SHIRT BECAUSE HE IS HOT. PATIENT STATES DIZZY AND SEEING LITTLE FLOATY THINGS. PROVIDER NOTIFIED.
[2023-07-12] MEDS: LORazepam 2 mg Tablet PO ×3 (16:02→20:29)
[2023-07-12] MEDS: acetaminophen 325 mg Tablet 650 MG PO (16:52)
[2023-07-12] MEDS: folic acid 1 mg Tablet PO (17:09)
[2023-07-12] MEDS: thiamine 100 mg Tablet PO (17:09)
[2023-07-12] MEDS: multivitamin therapeutic Tablet 1 TAB PO (17:09)
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
[2023-07-12] MEDS: prazosin 1 mg Capsule 4 MG PO (20:29)
--- NOTE | 2023-07-12 20:29 | PC.NURSE ---
Pt scored 20 on CIWA scale. 2mg po Ativan was given per ciwa protocol.
[2023-07-12] MEDS: atorvastatin 40 mg Tablet 80 MG PO (20:30)
[2023-07-12] MEDS: trazodone 50 mg Tablet 150 MG PO (20:30)
[2023-07-12] MEDS: cetirizine 10 mg Tablet PO (20:30)
[2023-07-12] MEDS: mirtazapine 30 mg Tablet PO (20:30)
[2023-07-13 06:00] VITALS: BP 137/79; PULSE 81; RESP 17; O2SAT 96
[2023-07-13] MEDS: ipratropium-albuterol 3 mL Neb INHALATION ×3 (07:27→15:20)
[2023-07-13 07:28] VITALS: PULSE 85; RESP 16; O2SAT 97
[2023-07-13] MEDS: folic acid 1 mg Tablet PO (08:48)
[2023-07-13] MEDS: CELEcoxib 200 mg Capsule PO ×2 (08:48→18:01)
[2023-07-13] MEDS: citalopram 20 mg Tablet PO (08:48)
[2023-07-13] MEDS: pantoprazole DR 40 mg Tablet PO (08:48)
[2023-07-13] MEDS: multivitamin therapeutic Tablet 1 TAB PO (08:48)
[2023-07-13] MEDS: thiamine 100 mg Tablet PO (08:48)
[2023-07-13] MEDS: fluticasone nasal spray 16gm Btl 2 SPRAY NASAL (08:49)
[2023-07-13] MEDS: acetaminophen 325 mg Tablet 650 MG PO ×2 (10:11→14:16)
[2023-07-13] MEDS: LORazepam 2 mg Tablet PO ×2 (10:13→14:11)
--- NOTE | 2023-07-13 10:14 | PC.NURSE ---
Patient denies avh and si/hi. Patient states he is feeling depressed and anxious this morning because, I don't know how long I'm gonna be here. He also reports pain in his lower back, neck, and his right knee. He says he slept well last night for the first time in a long time.
[2023-07-13 11:35] VITALS: PULSE 87; RESP 16; O2SAT 95
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
[2023-07-13 13:48] VITALS: BP 121/71; PULSE 89; RESP 18; TEMP 37; O2SAT 95
[2023-07-13] MEDS: diphenhydrAMINE 50 mg Capsule PO (14:11)
--- NOTE | 2023-07-13 14:37 | PC.NURSE ---
Patient reports extreme itching and anxiety. He also reports a headache and has his head under his covers. Patient says he goes from being really cold to really hot. This RN observed him visibly shaking. Ativan 2mg po given.
[2023-07-13 15:20] VITALS: PULSE 89; RESP 16; O2SAT 98
[2023-07-13] MEDS: ibuprofen 600 mg Tablet PO (16:13)
--- NOTE | 2023-07-13 17:01 | XRR_ITS ---
PROCEDURE INFORMATION: Exam: XR Right Knee Exam date and time: 07/13/2023 6:59 PM Age: 68 years old Clinical indication: Injury or trauma; Other: Pain after fall; Additional info: Knee pain after fall TECHNIQUE: Imaging protocol: Radiologic exam of the right knee. Views: 1 or 2 views. COMPARISON: No relevant prior studies available. FINDINGS: Bones/joints: There are mild-moderate degenerative changes involving the medial knee compartment with mild joint space narrowing, subchondral sclerosis and marginal spurring. Remaining joint surfaces are better preserved. There is no fracture or malalignment. There is calcification of the mediolateral meniscus likely degenerative in nature secondary to CPPD.. Soft tissues: Vascular calcifications noted in the posterior soft tissues. The. There is no joint effusion. XR/XR knee RT 1-2V [id number] IMPRESSION: Mild-moderate degenerative changes medial knee compartment. No acute bony abnormalities.
--- NOTE | 2023-07-13 17:02 | XRR_ITS ---
PROCEDURE INFORMATION: Exam: XR Lumbosacral Spine Exam date and time: 07/13/2023 6:57 PM Age: 68 years old Clinical indication: Injury or trauma; Other: Pain after fall TECHNIQUE: Imaging protocol: Radiologic exam of the lumbosacral spine. Views: 2 or 3 views. COMPARISON: No relevant prior studies available. FINDINGS: Bones/joints: A lumbar curvature and alignment are unremarkable. There are no compression fractures or spondylolisthesis. Moderate degenerative changes L4-L5 and L5-S1 with disc space narrowing, endplate sclerosis and osteophytic lipping. Pedicles are intact. Soft tissues: Unremarkable. Vasculature: Abdominal aorta is diffusely calcified. XR/XR lumbar spine 2-3V* [id number] IMPRESSION: Degenerative changes lower lumbar spine. No acute bony abnormalities.
--- NOTE | 2023-07-13 17:02 | XRR_ITS ---
PROCEDURE INFORMATION: Exam: XR Cervical Spine Exam date and time: 07/13/2023 7:02 PM Age: 68 years old Clinical indication: Neck pain; Additional info: Neck pain after fall TECHNIQUE: Imaging protocol: Radiologic exam of the cervical spine. Views: 2 or 3 views. COMPARISON: CT cervical spin wo con* [id number] 11/04/2018 4:08 PM FINDINGS: Bones/joints: Cervical curvature and alignment is unremarkable. Prior ACDF C3 through C6 with interbody spacers C3-C4, C4-C5 and C5-C6. Disc heights are maintained. Hardware is intact. Bone metal interface is unremarkable. There are moderate anterior degenerative endplate changes C6-C7 with disc space narrowing and anterior endplate osteophytic lipping. No fracture or dislocation detected. Soft tissues: Unremarkable. XR/XR cervical spine 3V* [id number] IMPRESSION: Prior ACDF with maintained anatomic alignment. No acute abnormalities.
--- NOTE | 2023-07-13 17:06 | PM.CONSULT ---
Providers/Reason For Consult Consulting Physician/Specialty*: Family Medicine Reason for Consult*: Recent fall with R knee, neck and low back pain. H/O neck and low back surgery. Attending Physician: Jose Paniagua MD Primary Care Provider: Stephy Nayak MD History of Present Illness History of Present Illness Greg Duncan is a 68 year old male currently residing in the [facility]. Dr. Paniagua from psychiatry had requested a consult to discuss lumbar and cervical pain after a recent fall. Patient also tells me that he is having a lot of right knee pain. He is uncertain as to when he fell, but reports to me that he has had surgery on both his lumbar and cervical regions in the past. He says that he feels his muscles are really tight in his neck and back, and he has been able to move his neck through a normal motion. He is concerned that he may have hurt his previous surgery. He also says that his right knee has been hurting since this fall. He does pinpoint the majority of the pain on the inner aspect of the knee joint. Says he has been able to walk and do most of his activities, but his pain is constant. He denies any upper or lower extremity weakness, or other neuropathic symptoms. At home he normally takes Celebrex twice a day, Tylenol, and occasionally some naproxen. Review of Systems General: Reports: 10 or more systems reviewed and unremarkable except in HPI and below Medications/Allergies Home Medications Medication Instructions Recorded Confirmed Last Taken Type cetirizine 10 mg tablet (Zyrtec) 10 mg PO DAILY@20 01/21/21 07/12/23 Unknown History gabapentin 800 mg tablet 800 mg PO TID@08,,20 01/21/21 07/12/23 01/21/21 08:00 History hydroxyzine HCl 25 mg tablet 25 mg PO TID PRN Anxiety 01/21/21 07/12/23 01/21/21 History ipratropium 20 mcg-albuterol 100 1 puff inhalation QID PRN 01/21/21 07/12/23 01/21/21 History mcg/actuation mist for inhalation Shortness Of Breath (Combivent Respimat) mirtazapine 30 mg tablet 30 mg PO BEDTIME 01/21/21 07/12/23 Unknown History naproxen 250 mg tablet 250 mg PO BID PRN Pain 01/21/21 07/12/23 01/21/21 History metoprolol succinate 50 mg 50 mg PO DAILY #30 tabs 01/22/21 07/12/23 Unknown Rx tablet,extended release 24 hr montelukast 10 mg tablet 10 mg PO DAILY 03/09/21 07/12/23 Unknown History prazosin 2 mg capsule 4 mg PO DAILY 03/09/21 07/12/23 Unknown History trazodone 100 mg tablet 100 mg PO DAILY 03/09/21 07/12/23 Unknown History tiotropium 2.5 mcg-olodaterol 2.5 2 puff inhalation DAILY 180 days 04/11/22 07/12/23 Unknown Rx mcg/actuation mist for inhalation #24 grams (Stiolto Respimat) tramadol 50 mg tablet 50 mg PO Q6H PRN Pain 09/04/22 07/12/23 Unknown History celecoxib 200 mg capsule (Celebrex) 200 mg PO BID #60 caps 06/05/23 07/12/23 Unknown Rx methotrexate sodium 2.5 mg tablet See Rx Instructions PO .week 06/05/23 07/12/23 Unknown Rx Rheumatoid Arthritis #150 tabs prednisone 10 mg tablet 10 mg PO DAILY PRN joint pain #90 06/05/23 07/12/23 Unknown Rx tabs Allergies Allergy/AdvReac Type Severity Reaction Status Date / Time mold Allergy ALGY-Hives Verified 07/12/23 18:17 Penicillins Allergy ALGY-Anaphy Verified 06/05/23 14:20 laxis Current Medications Generic Name Dose Route Start Last Admin Trade Name Freq PRN Reason Stop Dose Admin Acetaminophen 650 mg 07/12/23 15:47 07/13/23 14:16 Acetaminophen 325 Mg Tablet PO 650 mg Q4H PRN Administration MILD PAIN Albuterol/Ipratropium 3 ml 07/12/23 20:00 07/13/23 15:20 Ipratropium-Albuterol 3 Ml Neb INHALATION 3 ml QID.RESPIRATORY KENAN Administration Atorvastatin Calcium 80 mg 07/12/23 21:00 07/12/23 20:30 Atorvastatin 40 Mg Tablet PO 80 mg BEDTIME KENAN Administration Celecoxib 200 mg 07/13/23 09:00 07/13/23 08:48 Celecoxib 200 Mg Capsule PO 200 mg BID KENAN Administration Cetirizine HCl 10 mg 07/12/23 21:00 07/12/23 20:30 Cetirizine 10 Mg Tablet PO 10 mg BEDTIME KENAN Administration Citalopram Hydrobromide 20 mg 07/13/23 09:00 07/13/23 08:48 Citalopram 20 Mg Tablet PO 20 mg DAILY KENAN Administration Diphenhydramine HCl 50 mg 07/13/23 14:05 07/13/23 14:11 Diphenhydramine 50 Mg Capsule PO 50 mg Q4H PRN Administration ITCHING Fluticasone Propionate 2 spray 07/13/23 09:00 07/13/23 08:49 Fluticasone Nasal [place] 16gm Btl NASAL 2 spray DAILY KENAN Administration Folic Acid 1 mg 07/12/23 15:45 07/13/23 08:48 Folic Acid 1 Mg Tablet PO 1 mg DAILY KENAN Administration Ibuprofen 600 mg 07/12/23 15:47 07/13/23 16:13 Ibuprofen 600 Mg Tablet PO 600 mg Q6H PRN Administration MODERATE PAIN Lorazepam 2 mg 07/12/23 15:45 07/13/23 14:11 Lorazepam 2 Mg Tablet PO 2 mg PROTOCOL PRN Administration WITHDRAWAL Protocol Mirtazapine 30 mg 07/12/23 21:00 07/12/23 20:30 Mirtazapine 30 Mg Tablet PO 30 mg BEDTIME KENAN Administration Multivitamins Therapeutic 1 tab 07/12/23 15:45 07/13/23 08:48 Multivitamin Therapeutic Tablet PO 1 tab DAILY KENAN Administration Pantoprazole Sodium 40 mg 07/13/23 09:00 07/13/23 08:[address] 40 Mg Tablet PO 40 mg DAILY KENAN Administration Prazosin HCl 4 mg 07/12/23 21:00 07/12/23 20:29 Prazosin 1 Mg Capsule PO 4 mg BEDTIME KENAN Administration Thiamine Mononitrate 100 mg 07/12/23 15:45 07/13/23 08:48 Thiamine 100 Mg Tablet PO 100 mg DAILY KENAN Administration Trazodone HCl 150 mg 07/12/23 21:00 07/12/23 20:30 Trazodone 50 Mg Tablet PO 07/13/23 21:01 150 mg BEDTIME KENAN Administration PFSH Acute PFSH: Medical History Atypical chest pain Chronic obstructive pulmonary disease Chronic steroid use Coronary artery disease COVID-19 Elevated troponin High risk medication use Hypertensive urgency Resolved Immunization counseling Seronegative rheumatoid arthritis of both hands Surgical History History of neck surgery Family History Other CAD (coronary artery disease) Cancer Dementia Hyperlipidemia Hypertension Denies family history of Diabetes Chronic kidney disease (CKD) Anesthesia complication Bleeding disorder Lung disease Stroke Social History Smoking and tobacco status: current some day smoker cigarettes Packs smoked per day: 1 Years cigarettes smoked: 50 and cigars Smoking risk assessment/counseling performed?: Yes Alcohol intake: never Counseling given: No Substance/Drug Use: never Counseling given: No Lives independently: Yes Household members: none Marital status: Single service: Yes Current occupational status: retired 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 Paraspinal muscle tenderness is noted throughout the back and neck. There is no point tenderness over the spinous processes. Range of motion is limited in the neck to approximately 30 degrees rotation, and 45 degrees extension. Lumbar rotation appears mildly limited, but within functional limits. Right knee: No gross deformity, no obvious joint effusion. There is tenderness over the medial collateral ligament. ACL/PCL testing is negative. There is a positive valgus stress test, negative varus test. Data 07/12/23 05:46 07/12/23 05:46 A&P Assessment and plan (1) History of recent fall: (2) Right knee pain: (3) Neck pain: (4) Lumbar back pain: Plan 68-year-old male admitted to [facility] seen for R knee, neck and lumbar back pain after a fall. X-rays were obtained yesterday of the right knee, the neck, and the lumbar region. No acute fractures or dislocations were noted. It appears that his hardware in both his neck and back are both properly aligned, and no acute disruptions were noted. Would recommend patient to use heat, and/or ice as needed for pain. He can continue his Celebrex. He will likely benefit from this for other anti-inflammatory medications, possibly even short steroid course. I did prescribe for him to have some baclofen which may help with his muscle spasms. Can consider physical therapy if his symptoms do not improve in the next 1 week. We can continue to follow along with patient for the next few days if needed. Coding Level of Care Code Acute Code for Chg Fwd Low MDM includes number and complexity of problems actively addressed during encounter and described risk of complication, morbidity or mortality of management as documented Diagnoses History of recent fall Z91.81 Right knee pain M25.561 Neck pain M54.2 Lumbar back pain M54.50
[2023-07-13] MEDS: mirtazapine 30 mg Tablet PO (20:23)
[2023-07-13] MEDS: atorvastatin 40 mg Tablet 80 MG PO (20:23)
[2023-07-13] MEDS: prazosin 1 mg Capsule 4 MG PO (20:23)
[2023-07-13] MEDS: trazodone 50 mg Tablet 150 MG PO (20:23)
[2023-07-13] MEDS: cetirizine 10 mg Tablet PO (20:23)
[2023-07-13 21:16] VITALS: BP 142/79; PULSE 79; RESP 18; TEMP 36.7; O2SAT 99
[2023-07-14 06:00] VITALS: BP 116/80; PULSE 112; RESP 18; TEMP 36.7; O2SAT 96
--- NOTE | 2023-07-14 08:30 | P.NPUPN_ITS ---
Subjective NPU Subjective: Patient presented today reporting that he is still feeling quite depressed. We discussed the risks, benefits and alternatives of increasing his Celexa and he understood and agreed to proceed as is documented in this note. We discussed taking it a day at a time and Dr. Rodriguez being here tomorrow to continue the process. Mental Status Exam MSE Comments: This is an older white male, in hospital scrubs, looking somewhat younger than stated age, with limited grooming and eye contact. No abnormal movements, except for mild psychomotor retardation. Cooperative with exam in mild to moderate dist ress. Speech was decreased rate and volume. Mood described as depressed; affect congruent. Thought process, organized. Thought content: patient denied any suicidal or homicidal ideation, there were no delusions reported or noted, patient denied any auditory or visual hallucinations. Attention, concentration, and memory appeared intact, but none were formally tested. Alert and oriented times three. Insight and judgment are impaired. Impulse control is impaired. Vitals/I&O/Wt Last Vital Signs Temp 98.0 F 07/14/23 06:00 Pulse 67 07/14/23 22:00 Resp 18 07/14/23 22:00 BP 165/77 07/14/23 22:00 Pulse Ox 96 07/14/23 22:00 O2 Del Method Room Air 07/14/23 14:00 07/14/23 07/14/23 07/15/23 14:59 22:59 06:59 Intake Total 720 / 720 Balance 720 / 720 Weight last 48 hrs Weight 73.482 kg Data N[facility] 07/12/23 05:46 07/12/23 05:46 A&P Assessment and plan (1) Suicidal ideation: (2) History of recent fall: (3) Lumbar back pain: (4) Neck pain: (5) Right knee pain: (6) PTSD (post-traumatic stress disorder): (7) Major depressive disorder: (8) Bereavement: Plan This is a 68-year-old, white male, with a long history of mental health and addiction issues, with several recent losses, loss of sobriety and recent heavy drinking, who presents reporting suicidal thoughts and a high risk of benitez icidality. 1. Continue CIWA protocol. 2. Continue current medications. Increase Celexa to 40 mg p.o. daily 3. Encourage individual, group, and milieu therapy. 4. Continue q-15-minute checks for safety. 5. Recommend sober living treatment at the highest level of care to which the patient is willing to commit. Involuntary Hold Information 96 Hour Hold: 96 Hour Involuntary Admission: No Attestations [facility] Medical Necessity Statement*: Inpatient hospitalization is medically necessary and the clinically appropriate intervention, at this time. We will monitor medications and make changes as indicated. Likely length of stay is three to five days. Coding Level of Care Code Acute Code for [facility] Fwd Diagnoses Suicidal ideation R45.851 History of recent fall Z91.81 Lumbar back pain M54.50 Neck pain M54.2 Right knee pain M25.561 PTSD (post-traumatic stress disorder) F43.10 Major depressive disorder F32.9 Bereavement Z63.4
[2023-07-14] MEDS: acetaminophen 325 mg Tablet 650 MG PO (08:57)
[2023-07-14] MEDS: citalopram 20 mg Tablet PO ×2 (08:57→08:58)
[2023-07-14] MEDS: folic acid 1 mg Tablet PO (08:57)
[2023-07-14] MEDS: multivitamin therapeutic Tablet 1 TAB PO (08:58)
[2023-07-14] MEDS: CELEcoxib 200 mg Capsule PO ×2 (08:58→16:58)
[2023-07-14] MEDS: pantoprazole DR 40 mg Tablet PO (08:58)
[2023-07-14] MEDS: fluticasone nasal spray 16gm Btl 2 SPRAY NASAL (08:58)
[2023-07-14] MEDS: thiamine 100 mg Tablet PO (08:58)
[2023-07-14] MEDS: ipratropium-albuterol 3 mL Neb INHALATION (09:19)
[2023-07-14 09:20] VITALS: PULSE 90; RESP 16; O2SAT 98
[2023-07-14] MEDS: hyDROXYzine 25 mg Capsule 50 MG PO (12:00)
[2023-07-14] MEDS: OLANZapine 5 mg ODT PO (13:21)
[2023-07-14] MEDS: nicotine 21 mg Patch 1 PATCH TRANSDERMA (13:25)
--- NOTE | 2023-07-14 13:29 | PC.NURSE ---
Patient appears to be distressed, sitting in dayroom with head resting on arms, face splotchy. Patient verbalized feeling stressed out. This nurse administered Zyprexa 5mg ODT and nicotine patch. After taking medication, patient reported that he was beginning to feel a little bit better. Patient encouraged to notify staff when feeling distressed. Patient said that he didn't want to be a nuisance. Patient was told that he wouldn't be a nuisance, that we are here to help. Patient left for room
[2023-07-14 14:00] VITALS: BP 144/82; PULSE 77; RESP 18; O2SAT 98
[2023-07-14] MEDS: LORazepam 2 mg Tablet PO (15:30)
--- NOTE | 2023-07-14 15:33 | PC.NURSE ---
Patient scored 10 on CiWA. Administered 2mg Ativan PO to patient. Patient states that he is very anxious. Patient is tremulous.
[2023-07-14] MEDS: cetirizine 10 mg Tablet PO (20:27)
[2023-07-14] MEDS: prazosin 1 mg Capsule 4 MG PO (20:27)
[2023-07-14] MEDS: mirtazapine 30 mg Tablet PO (20:28)
[2023-07-14] MEDS: atorvastatin 40 mg Tablet 80 MG PO (20:28)
[2023-07-14 22:00] VITALS: BP 165/77; PULSE 67; RESP 18; O2SAT 96
[2023-07-15] MEDS: acetaminophen 325 mg Tablet 650 MG PO ×2 (04:15→14:37)
[2023-07-15] MEDS: LORazepam 2 mg Tablet PO ×2 (04:15→13:56)
[2023-07-15 06:00] VITALS: BP 148/87; PULSE 79; RESP 16; TEMP 37; O2SAT 97
[2023-07-15] MEDS: thiamine 100 mg Tablet PO (08:12)
[2023-07-15] MEDS: citalopram 20 mg Tablet 40 MG PO (08:12)
[2023-07-15] MEDS: pantoprazole DR 40 mg Tablet PO (08:12)
[2023-07-15] MEDS: CELEcoxib 200 mg Capsule PO ×2 (08:12→17:21)
[2023-07-15] MEDS: fluticasone nasal spray 16gm Btl 2 SPRAY NASAL (08:12)
[2023-07-15] MEDS: multivitamin therapeutic Tablet 1 TAB PO (08:12)
[2023-07-15] MEDS: folic acid 1 mg Tablet PO (08:12)
[2023-07-15] MEDS: hyDROXYzine 25 mg Capsule 50 MG PO ×2 (08:12→17:21)
--- NOTE | 2023-07-15 08:27 | PC.NURSE ---
Patient reports that he had thoughts of SI during the night, but no plan. This morning, patient stated that he is not currently feeling suicidal. Patient is also reporting anxiety 9/10 and depression. Patient verbalized understanding when this nurse told him to come to staff if he wants to talk, or having thoughts of suicide
[2023-07-15 11:44] VITALS: PULSE 66; RESP 16; O2SAT 98
[2023-07-15] MEDS: ipratropium-albuterol 3 mL Neb INHALATION (11:44)
[2023-07-15 11:48] VITALS: PULSE 67
[2023-07-15 14:00] VITALS: BP 149/79; PULSE 68; RESP 16; TEMP 36.6; O2SAT 98
--- NOTE | 2023-07-15 16:27 | P.NPUPN_ITS ---
Subjective NPU Subjective: Patient is a 68-year-old white male with PTSD, major depressive disorder and alcohol abuse admitted with suicidal ideation. He continued to endorse suicidality stating that he was planning on completing his action of killing himself when he left here. He had continued to isolate himself on the milieu with limited attendance in groups. He had endorsed that he had lost all of his will to live. He had endorsed using approximately 1 pint of alcohol daily for the last 4 months after years of sobriety. He had reported that his mood had worsened with the of a friend and having witnessed his girlfriend hanging himself. He had continued to endorse hopelessness and anhedonia. He had reported having problems with concentration. He reported low energy. Mental Status Exam MSE Comments: This is an older white male, in hospital scrubs, looking somewhat younger than stated age, with poor grooming and fleeting eye contact. No abnormal movements, except for significant psychomotor retardation. He was cooperative with exam in significant distress. Speech was decreased in rate and normal in volume. Mood described as depressed; affect was flat and mood congruent. Thought process was linear and organized. Thought content: Endorsed suicidal ideation with a plan. Denied any homicidal ideation. He denied any auditory or visual hallucinations. He did not appear to be responding to internal stimuli. Attention, concentration, and memory appeared intact, but none were formally te sted. He was alert and oriented times three. Insight and judgment was impaired. Impulse control is poor. Vitals/I&O/Wt Last Vital Signs Temp 98.6 F 07/15/23 06:00 Pulse 67 07/15/23 11:48 Resp 16 07/15/23 11:44 BP 148/87 07/15/23 06:00 Pulse Ox 98 07/15/23 11:44 O2 Del Method Room Air 07/15/23 11:44 Weight last 48 hrs Weight 73.482 kg Data NPU 07/12/23 05:46 07/12/23 05:46 A&P Assessment and plan (1) Major depressive disorder: (2) PTSD (post-traumatic stress disorder): (3) Suicidal ideation: (4) History of recent fall: (5) Lumbar back pain: (6) Neck pain: (7) Right knee pain: (8) Bereavement: Plan This is a 68-year-old, white male, with a long history of mental health and addiction issues, with several recent losses, loss of sobriety and recent heavy drinking, who presents reporting suicidal thoughts and a high risk of s uicidality. 1. Continue CIWA protocol. 2. Continue current medications. Continue Celexa at 40 mg p.o. daily and add Seroquel at 50mg at night. 3. Encourage individual, group, and milieu therapy. 4. Continue q-15-minute checks for safety. 5. Recommend sober living treatment at the highest level of care to which the patient is willing to commit. Involuntary Hold Information 96 Hour Hold: 96 Hour Involuntary Admission: No Attestations [facility] Medical Necessity Statement*: Inpatient hospitalization is medically necessary and the clinically appropriate intervention, at this time. We will monitor medications and make changes as indicated. His likely length of stay is 5-7 days. Coding Level of Care Code Acute Code for [facility] Fwd Diagnoses Major depressive disorder F32.9 PTSD (post-traumatic stress disorder) F43.10 Suicidal ideation R45.851 History of recent fall Z91.81 Lumbar back pain M54.50 Neck pain M54.2 Right knee pain M25.561 Bereavement Z63.4
[2023-07-15] MEDS: atorvastatin 40 mg Tablet 80 MG PO (20:03)
[2023-07-15] MEDS: cetirizine 10 mg Tablet PO (20:03)
[2023-07-15] MEDS: mirtazapine 15 mg Tablet PO (20:03)
[2023-07-15] MEDS: quetiapine 25 mg Tablet 50 MG PO (20:04)
[2023-07-15] MEDS: prazosin 1 mg Capsule 4 MG PO (20:04)
[2023-07-15 21:04] VITALS: BP 161/76; PULSE 72; RESP 15; TEMP 36.4; O2SAT 98
[2023-07-16 06:00] VITALS: BP 124/73; PULSE 79; RESP 18; O2SAT 96
[2023-07-16] MEDS: citalopram 20 mg Tablet 40 MG PO (08:12)
[2023-07-16] MEDS: hyDROXYzine 25 mg Capsule 50 MG PO ×2 (08:12→17:07)
[2023-07-16] MEDS: folic acid 1 mg Tablet PO (08:12)
[2023-07-16] MEDS: multivitamin therapeutic Tablet 1 TAB PO (08:13)
[2023-07-16] MEDS: baclofen 10 mg Tablet PO (08:13)
[2023-07-16] MEDS: thiamine 100 mg Tablet PO (08:13)
[2023-07-16] MEDS: nicotine 21 mg Patch 1 PATCH TRANSDERMA (08:13)
[2023-07-16] MEDS: pantoprazole DR 40 mg Tablet PO (08:13)
[2023-07-16] MEDS: CELEcoxib 200 mg Capsule PO ×2 (08:13→17:07)
[2023-07-16] MEDS: fluticasone nasal spray 16gm Btl 2 SPRAY NASAL (08:16)
[2023-07-16] MEDS: OLANZapine 5 mg ODT PO (11:35)
[2023-07-16 14:00] VITALS: BP 178/90; PULSE 89; RESP 16; O2SAT 98
[2023-07-16] MEDS: quetiapine 25 mg Tablet PO (14:47)
--- NOTE | 2023-07-16 17:17 | W.PM.NPUPNS ---
Subjective NPU Subjective: Patient is a 68-year-old white male with PTSD, major depressive disorder and alcohol abuse admitted with suicidal ideation. Patient had continue to endorse anxiety stating that he was anxious and states that he has continued to feel sad about the loss of friends and family. The patient had continued to appear apathetic on the unit with limited engagement. He had continued to report having nightmares. He had minimized yesterday statements where he stated that he would make sure that he completed the action of killing himself when he left here. He had continued to isolate himself on the milieu with limited attendance in groups. He had endorsed that he had lost all of his will to live. He had endorsed using approximately 1 pint of alcohol daily for the last 4 months after years of sobriety. He had reported considerable use of alcohol over the past several months. He reported that he still was struggling with avoidance and frequently had flashbacks regarding past trauma. Mental Status Exam MSE Comments: This is an older white male, in hospital scrubs, looking somewhat younger than stated age, with poor grooming and fleeting eye contact. No abnormal movements, except for continued prominent psychomotor retardation. He was cooperative with exam in significant distress. Speech was decreased in rate and normal in volume. Mood described as depressed; affect remained flat and mood congruent. Thought process was linear and organized. Thought content: He had minimized suicidal ideation at this time. Denied any homicidal ideation. He denied any auditory or visual hallucinations. He did not appear to be responding to internal stimuli. Attention, concentration, and memory appeared intact, but none were formally tested. He was alert and oriented times three. Insight and judgment was impaired. Impulse control is poor. There was a continued sense of hopelessness as a theme during his conversations. Vitals/I&O/Wt Last Vital Signs Temp 97.6 F 07/15/23 21:04 Pulse 89 07/16/23 14:00 Resp 16 07/16/23 14:00 BP 178/90 07/16/23 14:00 Pulse Ox 98 07/16/23 14:00 O2 Del Method Room Air 07/16/23 14:00 Data NPU 07/12/23 05:46 07/12/23 05:46 A&P Assessment and plan (1) Major depressive disorder: (2) PTSD (post-traumatic stress disorder): (3) Suicidal ideation: (4) History of recent fall: (5) Lumbar back pain: (6) Neck pain: (7) Right knee pain: (8) Bereavement: Plan This is a 68-year-old, white male, with a long history of mental health and addiction issues, with several recent losses, loss of sobriety and recent heavy drinking, who presents reporting suicidal thoughts and a high risk of suicidality. 1. Continue CIWA protocol. 2. Continue current medications. Continue Celexa at 40 mg p.o. daily and increase Seroquel to 100 mg at night. Continue Remeron 30mg at night. Increase prazosin to 4mg at night. 3. Encourage individual, group, and milieu therapy. 4. Continue q-15-minute checks for safety. 5. Recommend sober living treatment at the highest level of care to which the patient is willing to commit. Involuntary Hold Information 96 Hour Hold: 96 Hour Involuntary Admission: No Attestations N[facility] Medical Necessity Statement*: Inpatient hospitalization is medically necessary and the clinically appropriate intervention, at this time. We will monitor medications and make changes as indicated. His likely length of stay is 5-7 days. Coding Level of Care Code Acute Code for [facility] Fwd Diagnoses Major depressive disorder F32.9 PTSD (post-traumatic stress disorder) F43.10 Suicidal ideation R45.851 History of recent fall Z91.81 Lumbar back pain M54.50 Neck pain M54.2 Right knee pain M25.561 Bereavement Z63.4
[2023-07-16] MEDS: atorvastatin 40 mg Tablet 80 MG PO (19:53)
[2023-07-16] MEDS: prazosin 1 mg Capsule 4 MG PO (19:53)
[2023-07-16] MEDS: cetirizine 10 mg Tablet PO (19:54)
[2023-07-16] MEDS: mirtazapine 15 mg Tablet PO (19:54)
[2023-07-16] MEDS: quetiapine 100 mg Tablet PO (19:54)
[2023-07-16 22:00] VITALS: BP 156/89; PULSE 76; RESP 18; TEMP 36.9; O2SAT 96
[2023-07-17 06:00] VITALS: BP 117/73; PULSE 89; RESP 16; TEMP 36.7; O2SAT 95
[2023-07-17] MEDS: pantoprazole DR 40 mg Tablet PO (08:21)
[2023-07-17] MEDS: multivitamin therapeutic Tablet 1 TAB PO (08:21)
[2023-07-17] MEDS: folic acid 1 mg Tablet PO (08:21)
[2023-07-17] MEDS: thiamine 100 mg Tablet PO (08:21)
[2023-07-17] MEDS: CELEcoxib 200 mg Capsule PO ×2 (08:22→18:26)
[2023-07-17] MEDS: citalopram 20 mg Tablet 40 MG PO (08:22)
[2023-07-17] MEDS: fluticasone nasal spray 16gm Btl 2 SPRAY NASAL (08:23)
[2023-07-17] MEDS: hyDROXYzine 25 mg Capsule 50 MG PO (08:26)
[2023-07-17] MEDS: ipratropium-albuterol 3 mL Neb INHALATION (10:39)
[2023-07-17 10:40] VITALS: PULSE 63; RESP 18; O2SAT 98
[2023-07-17 10:44] VITALS: PULSE 76
[2023-07-17] MEDS: LORazepam 2 mg Tablet PO ×2 (12:32→16:18)
--- NOTE | 2023-07-17 13:42 | PC.NURSE ---
Suture removal, L forearm, skin well approximated, no drainage. 5 sutures removed
[2023-07-17 14:00] VITALS: BP 126/77; PULSE 78; RESP 16; TEMP 36.8; O2SAT 98
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
[2023-07-17] MEDS: chlordiazePOXIDE 25 mg Capsule PO (18:27)
[2023-07-17 20:04] VITALS: BP 134/82; PULSE 69; RESP 18; TEMP 36.7; O2SAT 96
[2023-07-17] MEDS: quetiapine 300 mg Tablet 150 MG PO (20:27)
[2023-07-17] MEDS: prazosin 1 mg Capsule 4 MG PO (20:27)
[2023-07-17] MEDS: mirtazapine 15 mg Tablet 7.5 MG PO (20:27)
[2023-07-17] MEDS: cetirizine 10 mg Tablet PO (20:27)
[2023-07-17] MEDS: atorvastatin 40 mg Tablet 80 MG PO (20:27)
[2023-07-18 06:00] VITALS: BP 86/61; PULSE 108; RESP 18; TEMP 36.9; O2SAT 95
[2023-07-18] MEDS: thiamine 100 mg Tablet PO (09:03)
[2023-07-18] MEDS: pantoprazole DR 40 mg Tablet PO (09:03)
[2023-07-18] MEDS: multivitamin therapeutic Tablet 1 TAB PO (09:03)
[2023-07-18] MEDS: chlordiazePOXIDE 25 mg Capsule PO ×2 (09:03→17:13)
[2023-07-18] MEDS: CELEcoxib 200 mg Capsule PO ×2 (09:03→17:12)
[2023-07-18] MEDS: folic acid 1 mg Tablet PO (09:04)
[2023-07-18] MEDS: citalopram 20 mg Tablet 40 MG PO (09:04)
[2023-07-18] MEDS: fluticasone nasal spray 16gm Btl 2 SPRAY NASAL (09:04)
[2023-07-18] MEDS: hyDROXYzine 25 mg Capsule 50 MG PO (09:04)
[2023-07-18 09:53] VITALS: PULSE 87; RESP 18; O2SAT 97
[2023-07-18] MEDS: ipratropium-albuterol 3 mL Neb INHALATION (09:53)
[2023-07-18] MEDS: OLANZapine 5 mg ODT PO (13:15)
[2023-07-18 13:36] VITALS: BP 127/73; PULSE 83; RESP 17; TEMP 36.8; O2SAT 97
--- NOTE | 2023-07-18 14:28 | W.PM.NPUPNS ---
Subjective NPU Subjective: Patient is a 68-year-old white male with PTSD, major depressive disorder and alcohol abuse admitted with suicidal ideation. The patient had reported that he had some improvement in sleep. He had expressed a desire to possibly go home soon. Patient had minimized the threats that he had made to want to kill himself just yesterday stating that he was drunk. Patient did continue to report depression and some level of hopelessness. He had been able to attend groups and was more interactive. He had stated that he was feeling better with the titration of Seroquel upwards. He reported no side effects from his current medication. He had also reported feeling less jittery with the addition of Librium routinely. Patient had continued to describe having anhedonia and had stated that he continued to struggle with managing all the losses in his life. Mental Status Exam MSE Comments: This is an older white male, in hospital scrubs, looking somewhat younger than stated age, with poor grooming and fleeting eye contact. No abnormal movements, except for continued prominent psychomotor retardation and anergia. He was cooperative with exam in significant distress. Speech was decreased in rate and normal in volume. Mood described as depressed; affect remained extremely flat.. Thought process was linear and organized. Thought content: He had minimized suicidal ideation with no active homicidal ideation. He denied any auditory or visual hallucinations. He did not appear to be responding to internal stimuli. Attention, concentration, and memory appeared intact, but none were formally tested. He was alert and oriented times three. Insight and judgment was impaired. Impulse control is poor. There was a continued sense of hopelessness as a theme during his conversations. Vitals/I&O/Wt Last Vital Signs Temp 98.2 F 07/18/23 13:36 Pulse 83 07/18/23 13:36 Resp 17 07/18/23 13:36 BP 127/73 07/18/23 13:36 Pulse Ox 97 07/18/23 13:36 O2 Del Method Room Air 07/18/23 09:53 07/17/23 07/18/23 07/18/23 22:59 06:59 14:59 Intake Total 700 / 700 Balance 700 / 700 Data NPU 07/12/23 05:46 07/12/23 05:46 A&P Assessment and plan (1) Major depressive disorder: (2) PTSD (post-traumatic stress disorder): (3) Suicidal ideation: (4) History of recent fall: (5) Lumbar back pain: (6) Neck pain: (7) Right knee pain: (8) Bereavement: Plan This is a 68-year-old, white male, with a long history of mental health and addiction issues, with several recent losses, loss of sobriety and recent heavy drinking, who presents reporting suicidal thoughts and a high risk of suicidality. 1. Continue CIWA protocol. 2. Continue current medications. Continue Celexa at 40 mg p.o. daily and increase Seroquel to 200 mg at night adjunctively to treat MDD. Discontinue remeron 7.5mg at night. Continue prazosin to 4mg at night. 3. Encourage individual, group, and milieu therapy. 4. Continue q-15-minute checks for safety. 5. Recommend sober living treatment at the highest level of care to which the patient is willing to commit. Involuntary Hold Information 96 Hour Hold: 96 Hour Involuntary Admission: No Attestations NPU Medical Necessity Statement*: Inpatient hospitalization is medically necessary and the clinically appropriate intervention, at this time. We will monitor medications and make changes as indicated. His likely length of stay is 5-7 days. Coding Level of Care Code Acute Code for [facility] Fwd Diagnoses Major depressive disorder F32.9 PTSD (post-traumatic stress disorder) F43.10 Suicidal ideation R45.851 History of recent fall Z91.81 Lumbar back pain M54.50 Neck pain M54.2 Right knee pain M25.561 Bereavement Z63.4
[2023-07-18] MEDS: baclofen 10 mg Tablet PO (17:13)
[2023-07-18 20:09] VITALS: BP 133/71; PULSE 69; RESP 17; TEMP 36.4; O2SAT 98
[2023-07-18] MEDS: quetiapine 100 mg Tablet 200 MG PO (20:49)
[2023-07-18] MEDS: prazosin 1 mg Capsule 4 MG PO (20:49)
[2023-07-18] MEDS: atorvastatin 40 mg Tablet 80 MG PO (20:49)
[2023-07-18] MEDS: cetirizine 10 mg Tablet PO (20:49)
[2023-07-19 06:00] VITALS: BP 122/65; PULSE 87; RESP 18; O2SAT 95
[2023-07-19] MEDS: folic acid 1 mg Tablet PO (09:03)
[2023-07-19] MEDS: thiamine 100 mg Tablet PO (09:03)
[2023-07-19] MEDS: chlordiazePOXIDE 25 mg Capsule PO ×2 (09:03→17:18)
[2023-07-19] MEDS: citalopram 20 mg Tablet 40 MG PO (09:03)
[2023-07-19] MEDS: pantoprazole DR 40 mg Tablet PO (09:04)
[2023-07-19] MEDS: CELEcoxib 200 mg Capsule PO ×2 (09:04→17:18)
[2023-07-19] MEDS: multivitamin therapeutic Tablet 1 TAB PO (09:04)
[2023-07-19] MEDS: fluticasone nasal spray 16gm Btl 2 SPRAY NASAL (09:04)
[2023-07-19 09:37] VITALS: PULSE 87; RESP 18; O2SAT 95
[2023-07-19] MEDS: ipratropium-albuterol 3 mL Neb INHALATION ×2 (09:37→20:10)
[2023-07-19] MEDS: nicotine 2 mg Gum BUCCAL (10:55)
[2023-07-19] MEDS: OLANZapine 5 mg ODT PO (11:51)
[2023-07-19 14:00] VITALS: BP 115/63; PULSE 68; RESP 16; TEMP 36.9; O2SAT 97
[2023-07-19] MEDS: predniSONE 10 mg Tablet PO (15:25)
[2023-07-19] MEDS: TRAMadol 50 mg Tablet PO (15:27)
--- NOTE | 2023-07-19 16:07 | W.PM.NPUPNS ---
Subjective NPU Subjective: Patient is a 68-year-old white male with PTSD, major depressive disorder and alcohol abuse admitted with suicidal ideation. The patient on interview today and revealed that he has had a past history of manic symptoms. He had reported having days where his sleep was virtually nonexistent with the presence of racing thoughts increased irritability and flight of ideas. He had stated that he had this problem for several years after he had left the in his 20s. He had reported that he has more episodes of depression but does cycle into bipin occasionally. The patient had reported some improvement in his mood over the last few days with the addition of Seroquel and was informed that Seroquel was a medicine that could be useful for the treatment of acute bipin as well as for depressive episodes. Staff notes the patient had been more compliant with some improvement in motivation noted as he was able to attend groups. He continued to endorse depression and anhedonia. He had also endorsed auditory hallucinations from time to time. Mental Status Exam MSE Comments: This is an older white male, in hospital scrubs, looking somewhat younger than stated age, with poor grooming and fleeting eye contact. No abnormal movements, except for continued prominent psychomotor retardation and anergia. He was cooperative with exam in significant distress. Speech was normal in rate and normal in volume. Mood described as a little better.; affect was restricted today. Thought process was linear and organized. Thought content: He had minimized suicidal ideation with no active homicidal ideation. He denied any auditory or visual hallucinations. He did not appear to be responding to internal stimuli. Attention, concentration, and memory appeared intact, but none were formally tested. He was alert and oriented times three. Insight and judgment was impaired. Impulse control is poor. There was a continued sense of hopelessness as a theme during his conversations. Vitals/I&O/Wt Last Vital Signs Temp 98.5 F 07/19/23 14:00 Pulse 68 07/19/23 14:00 Resp 16 07/19/23 14:00 BP 115/63 07/19/23 14:00 Pulse Ox 97 07/19/23 14:00 O2 Del Method Room Air 07/19/23 09:37 Data NPU 07/12/23 05:46 07/12/23 05:46 A&P Assessment and plan (1) Bipolar affective, depress, unspec: (2) PTSD (post-traumatic stress disorder): (3) Suicidal ideation: (4) History of recent fall: (5) Lumbar back pain: (6) Neck pain: (7) Right knee pain: (8) Bereavement: Plan This is a 68-year-old, white male, with a long history of mental health and addiction issues, with several recent losses, loss of sobriety and recent heavy drinking, who presents reporting suicidal thoughts and a high risk of suicidality. 1. Continue CIWA protocol. 2. Continue current medications. Continue Celexa at 40 mg p.o. daily and increase Seroquel to 300 mg at night to target bipolar depression. Continue prazosin to 4mg at night. 3. Encourage individual, group, and milieu therapy. 4. Continue q-15-minute checks for safety. 5. Recommend sober living treatment at the highest level of care to which the patient is willing to commit. Involuntary Hold Information 96 Hour Hold: 96 Hour Involuntary Admission: No Attestations NPU Medical Necessity Statement*: Inpatient hospitalization is medically necessary and the clinically appropriate intervention, at this time. We will monitor medications and make changes as indicated. His likely length of stay is 5-7 days. Coding Level of Care Code Acute Code for [facility] Fwd Diagnoses Bipolar affective, depress, unspec F31.30 PTSD (post-traumatic stress disorder) F43.10 Suicidal ideation R45.851 History of recent fall Z91.81 Lumbar back pain M54.50 Neck pain M54.2 Right knee pain M25.561 Bereavement Z63.4
[2023-07-19] MEDS: hyDROXYzine 25 mg Capsule 50 MG PO (16:38)
[2023-07-19 20:00] VITALS: PULSE 64; RESP 18; O2SAT 96
[2023-07-19] MEDS: atorvastatin 40 mg Tablet 80 MG PO (20:24)
[2023-07-19] MEDS: quetiapine 100 mg Tablet 300 MG PO (20:25)
[2023-07-19] MEDS: cetirizine 10 mg Tablet PO (20:25)
[2023-07-19] MEDS: prazosin 1 mg Capsule 4 MG PO (20:25)
[2023-07-19 20:49] VITALS: BP 143/85; PULSE 80; RESP 17; TEMP 36.8; O2SAT 96
[2023-07-20] MEDS: acetaminophen 325 mg Tablet 650 MG PO (00:15)
[2023-07-20] MEDS: docusate sodium 100 mg Capsule 200 MG PO (00:20)
[2023-07-20] MEDS: trazodone 50 mg Tablet PO (00:56)
[2023-07-20 06:00] VITALS: BP 161/75; PULSE 104; RESP 18; TEMP 36.3; O2SAT 95
[2023-07-20] MEDS: thiamine 100 mg Tablet PO (09:03)
[2023-07-20] MEDS: CELEcoxib 200 mg Capsule PO ×2 (09:03→17:29)
[2023-07-20] MEDS: pantoprazole DR 40 mg Tablet PO (09:03)
[2023-07-20] MEDS: folic acid 1 mg Tablet PO (09:04)
[2023-07-20] MEDS: citalopram 20 mg Tablet 40 MG PO (09:04)
[2023-07-20] MEDS: multivitamin therapeutic Tablet 1 TAB PO (09:04)
[2023-07-20] MEDS: chlordiazePOXIDE 25 mg Capsule PO (09:04)
[2023-07-20] MEDS: TRAMadol 50 mg Tablet PO (09:05)
[2023-07-20] MEDS: polyethylene glycol 3350 Pkt 17 gm PO ×2 (09:06→18:56)
[2023-07-20] MEDS: fluticasone nasal spray 16gm Btl 2 SPRAY NASAL (09:06)
[2023-07-20] MEDS: hyDROXYzine 25 mg Capsule 50 MG PO (09:11)
[2023-07-20 09:15] VITALS: PULSE 65; RESP 20; O2SAT 97
[2023-07-20] MEDS: ipratropium-albuterol 3 mL Neb INHALATION (09:23)
[2023-07-20 09:30] VITALS: PULSE 68
[2023-07-20 14:00] VITALS: BP 132/75; PULSE 71; RESP 19; TEMP 36.6; O2SAT 97
--- NOTE | 2023-07-20 14:20 | W.PM.NPUPNS ---
Subjective NPU Subjective: Patient is a 68-year-old white male with PTSD, major depressive disorder and alcohol abuse admitted with suicidal ideation. Patient had reported his mood was still low. He had reported that his thoughts had not been racing as much. He reported low energy and low motivation. He had reported that he had lost everything in his life and reported continued PTSD related symptoms as well. Patient had reported no alcohol withdrawal symptoms but reported considerable anxiety. Patient had reported some improvement in sleep with the increase in Seroquel though. The patient reported having been discouraged by the of his girlfriend over 4 years ago and continued to be reminded of her as he had reported flashbacks regarding finding her when she had hanged herself. Mental Status Exam MSE Comments: This is an older white male, in hospital scrubs, looking somewhat younger than stated age, with poor grooming and fleeting eye contact. No abnormal movements, except for continued prominent psychomotor retardation and anergia. He was cooperative with exam in significant distress. Speech was normal in rate and normal in volume. Mood described as depressed; affect was restricted today. Thought process was linear and organized. Thought content: He had endorsed suicidal ideation with no active homicidal ideation. He denied any auditory or visual hallucinations. He did not appear to be responding to internal stimuli. Attention, concentration, and memory appeared intact, but none were formally tested. He was alert and oriented times three. Insight and judgment was impaired. Impulse control is poor. There was a continued sense of hopelessness as a theme during his conversations. Vitals/I&O/Wt Last Vital Signs Temp 97.9 F 07/20/23 14:00 Pulse 71 07/20/23 14:00 Resp 19 H 07/20/23 14:00 BP 132/75 07/20/23 14:00 Pulse Ox 97 07/20/23 14:00 O2 Del Method Room Air 07/20/23 09:15 Data NPU 07/12/23 05:46 07/12/23 05:46 A&P Assessment and plan (1) Bipolar affective, depress, unspec: (2) PTSD (post-traumatic stress disorder): (3) Suicidal ideation: (4) History of recent fall: (5) Lumbar back pain: (6) Neck pain: (7) Right knee pain: (8) Bereavement: Plan This is a 68-year-old, white male, with a long history of mental health and addiction issues, with several recent losses, loss of sobriety and recent heavy drinking, who presents reporting suicidal thoughts and a high risk of suicidality. 1. Continue CIWA protocol. 2. Continue current medications. Continue Celexa at 40 mg p.o. daily and increase Seroquel to 350 mg at night to target bipolar depression. Continue prazosin to 4mg at night. Reduce Librium to 25mg daily. 3. Encourage individual, group, and milieu therapy. 4. Continue q-15-minute checks for safety. 5. Recommend sober living treatment at the highest level of care to which the patient is willing to commit. Involuntary Hold Information 96 Hour Hold: 96 Hour Involuntary Admission: No Attestations NPU Medical Necessity Statement*: Inpatient hospitalization is medically necessary and the clinically appropriate intervention, at this time. We will monitor medications and make changes as indicated. His likely length of stay is 5-7 days. Coding Level [facility] Care [facility] Diagn[facility] Bipolar affective, depress, unspec F31.30 PTSD (post-traumatic stress disorder) F43.10 Suicidal ideation R45.851 History of recent fall Z91.81 Lumbar back pain M54.50 Neck pain M54.2 Right knee pain M25.561 Bereavement Z63.4
[2023-07-20] MEDS: baclofen 10 mg Tablet PO (17:29)
[2023-07-20] MEDS: predniSONE 10 mg Tablet PO (17:30)
[2023-07-20] MEDS: atorvastatin 40 mg Tablet 80 MG PO (21:10)
[2023-07-20] MEDS: prazosin 1 mg Capsule 4 MG PO (21:10)
[2023-07-20] MEDS: cetirizine 10 mg Tablet PO (21:10)
[2023-07-20] MEDS: quetiapine 100 mg Tablet 350 MG PO (21:11)
[2023-07-20 21:33] VITALS: BP 147/76; PULSE 70; RESP 16; TEMP 36.6; O2SAT 97
[2023-07-21 06:00] VITALS: BP 134/74; PULSE 76; RESP 16; O2SAT 95
[2023-07-21 08:00] VITALS: PULSE 71; RESP 18; O2SAT 98
[2023-07-21] MEDS: ipratropium-albuterol 3 mL Neb INHALATION (08:42)
[2023-07-21 08:47] VITALS: PULSE 69
[2023-07-21] MEDS: CELEcoxib 200 mg Capsule PO ×2 (09:15→17:12)
[2023-07-21] MEDS: docusate sodium 100 mg Capsule 200 MG PO (09:16)
[2023-07-21] MEDS: citalopram 20 mg Tablet 40 MG PO (09:16)
[2023-07-21] MEDS: folic acid 1 mg Tablet PO (09:17)
[2023-07-21] MEDS: pantoprazole DR 40 mg Tablet PO (09:17)
[2023-07-21] MEDS: multivitamin therapeutic Tablet 1 TAB PO (09:17)
[2023-07-21] MEDS: thiamine 100 mg Tablet PO (09:17)
[2023-07-21] MEDS: nicotine 2 mg Gum BUCCAL (09:17)
[2023-07-21] MEDS: chlordiazePOXIDE 25 mg Capsule PO (09:44)
[2023-07-21] MEDS: fluticasone nasal spray 16gm Btl 2 SPRAY NASAL (09:46)
[2023-07-21] MEDS: hyDROXYzine 25 mg Capsule 50 MG PO (11:46)
--- NOTE | 2023-07-21 13:13 | W.PM.NPUPNS ---
Subjective NPU Subjective: Patient is a 68-year-old white male with PTSD, major depressive disorder and alcohol abuse admitted with suicidal ideation. Patient had endorsed a past history of bipin as well. He continued to have reoccurring thoughts about hurting himself. 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 He had continue to endorse depressed mood. He had stated that his thoughts were moving slower with the Seroquel and reported that he had been able to sleep better but still had woken with nightmares. Patient had been on the fringes of socializing but was able to go to groups with some prodding. Patient had reported a general lack of energy. He continued to report extreme anxiety and stated that he had used alcohol to manage and cope with his anxiety for several years. Mental Status Exam MSE Comments: This is an older white male, in hospital scrubs, looking somewhat younger than stated age, with poor grooming and fleeting eye contact. There was significant psychomotor retardation and and a oral facial motor movement appreciated today. He was cooperative with exam in significant distress. Speech was normal in rate and normal in volume. Mood described as depressed; affect was restricted today. Thought process was linear and organized. Thought content: He had endorsed suicidal ideation with no active homicidal ideation. He denied any auditory or visual hallucinations. He did not appear to be responding to internal stimuli. Attention, concentration, and memory appeared intact, but none were formally tested. He was alert and oriented times three. Insight and judgment was impaired. Impulse control is poor. There was a continued sense of hopelessness as a theme during his conversations. Vitals/I&O/Wt Last Vital Signs Temp 97.8 F 07/20/23 21:33 Pulse 69 07/21/23 08:47 Resp 18 07/21/23 08:00 BP 134/74 07/21/23 06:00 Pulse Ox 98 07/21/23 08:00 O2 Del Method Room Air 07/21/23 08:00 07/20/23 07/21/23 07/21/23 22:59 06:59 14:59 Intake Total 0 / 0 Balance 0 / 0 Weight last 48 hrs Weight 84.64 kg Data NPU 07/12/23 05:46 08/25/23 05:46 A&P Assessment and plan (1) Bipolar affective, depress, unspec: (2) PTSD (post-traumatic stress disorder): (3) Suicidal ideation: (4) History of recent fall: (5) Lumbar back pain: (6) Neck pain: (7) Right knee pain: (8) Bereavement: Plan This is a 68-year-old, white male, with a long history of mental health and addiction issues, with several recent losses, loss of sobriety and recent heavy drinking, who presents reporting suicidal thoughts and a high risk of suicidality. 1. Add B6 300mg bid for extrapyramidal symptoms. 2. Continue current medications. Continue Celexa at 40 mg p.o. daily and continue Seroquel at 350 mg at night to target bipolar depression. Continue prazosin to 4mg at night. Continue Librium at 25mg daily. 3. Encourage individual, group, and milieu therapy. 4. Continue q-15-minute checks for safety. 5. Recommend sober living treatment at the highest level of care to which the patient is willing to commit. Involuntary Hold Information 96 Hour Hold: 96 Hour Involuntary Admission: No Attestations NPU Medical Necessity Statement*: Inpatient hospitalization is medically necessary and the clinically appropriate intervention, at this time. We will monitor medications and make changes as indicated. His likely length of stay is 5-7 days. Coding Level of Care Code Acute Code for [facility] Fwd Diagnoses Bipolar affective, depress, unspec F31.30 PTSD (post-traumatic stress disorder) F43.10 Suicidal ideation R45.851 History of recent fall Z91.81 Lumbar back pain M54.50 Neck pain M54.2 Right knee pain M25.561 Bereavement Z63.4
[2023-07-21 13:59] VITALS: BP 145/79; PULSE 70; RESP 18; TEMP 36.4; O2SAT 97
[2023-07-21] MEDS: pyridoxine 50 mg Tablet 200 MG PO (17:12)
[2023-07-21 20:03] VITALS: BP 167/97; PULSE 61; RESP 18; O2SAT 96
[2023-07-21] MEDS: prazosin 1 mg Capsule 4 MG PO (20:24)
[2023-07-21] MEDS: atorvastatin 40 mg Tablet 80 MG PO (20:25)
[2023-07-21] MEDS: cetirizine 10 mg Tablet PO (20:25)
[2023-07-21] MEDS: quetiapine 100 mg Tablet 350 MG PO (20:25)
[2023-07-22 06:00] VITALS: BP 145/70; PULSE 78; RESP 18; O2SAT 95
[2023-07-22 08:00] VITALS: PULSE 73; RESP 16; O2SAT 98
[2023-07-22] MEDS: thiamine 100 mg Tablet PO (08:24)
[2023-07-22] MEDS: folic acid 1 mg Tablet PO (08:24)
[2023-07-22] MEDS: chlordiazePOXIDE 25 mg Capsule PO (08:24)
[2023-07-22] MEDS: citalopram 20 mg Tablet 40 MG PO (08:24)
[2023-07-22] MEDS: CELEcoxib 200 mg Capsule PO ×2 (08:24→17:24)
[2023-07-22] MEDS: multivitamin therapeutic Tablet 1 TAB PO (08:24)
[2023-07-22] MEDS: pyridoxine 50 mg Tablet 200 MG PO ×2 (08:24→17:24)
[2023-07-22] MEDS: pantoprazole DR 40 mg Tablet PO (08:24)
[2023-07-22] MEDS: hyDROXYzine 25 mg Capsule 50 MG PO (08:25)
[2023-07-22] MEDS: fluticasone nasal spray 16gm Btl 2 SPRAY NASAL (08:25)
[2023-07-22] MEDS: acetaminophen 325 mg Tablet 650 MG PO (09:24)
[2023-07-22] MEDS: OLANZapine 5 mg ODT PO (10:00)
[2023-07-22] MEDS: ipratropium-albuterol 3 mL Neb INHALATION (10:32)
[2023-07-22 13:19] VITALS: BP 133/74; PULSE 66; RESP 17; TEMP 36.3; O2SAT 97
--- NOTE | 2023-07-22 14:01 | W.PM.NPUPNS ---
Subjective NPU Subjective: Patient is a 68-year-old white male with PTSD, major depressive disorder and alcohol abuse admitted with suicidal ideation. Patient continued to report suicidal thoughts. He had reported that his thoughts were moving slower. He had difficulties with falling asleep. He reported that he was able to fall asleep initially but then woke up and was unable to fall back asleep. 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 He reported no side effects from his medication regimen at this time. Mental Status Exam MSE Comments: This is an older white male, in hospital scrubs, looking somewhat younger than stated age, with poor grooming and fleeting eye contact. There was severe psychomotor retardation but no oral facial movements noted today. He was cooperative with exam in significant distress. Speech was normal in rate and normal in volume. Mood described as depressed; affect was restricted today. Thought process was linear and organized. Thought content: He had endorsed suicidal ideation with no active homicidal ideation. He denied any auditory or visual hallucinations. He did not appear to be responding to internal stimuli. Attention, concentration, were grossly intact. He was alert and oriented times three. Insight and judgment was impaired. Impulse control is poor. He had endorsed feeling a little more hopeful today. Vitals/I&O/Wt Last Vital Signs Temp 97.4 F L 07/22/23 13:19 Pulse 66 07/22/23 13:19 Resp 17 07/22/23 13:19 BP 133/74 07/22/23 13:19 Pulse Ox 97 07/22/23 13:19 O2 Del Method Room Air 07/22/23 08:00 Weight last 48 hrs Weight 84.64 kg Data NPU 07/12/23 05:46 07/12/23 05:46 A&P Assessment and plan (1) Bipolar affective, depress, unspec: (2) PTSD (post-traumatic stress disorder): (3) Suicidal ideation: (4) History of recent fall: (5) Lumbar back pain: (6) Neck pain: (7) Right knee pain: (8) Bereavement: Plan This is a 68-year-old, white male, with a long history of mental health and addiction issues, with several recent losses, loss of sobriety and recent heavy drinking, who presents reporting suicidal thoughts and a high risk of suicidality. 1. Add B6 300mg bid for extrapyramidal symptoms. 2. Continue current medications. Continue Celexa at 40 mg p.o. daily and continue Increase Seroquel to 400 mg at night to target bipolar depression. Continue prazosin to 4mg at night. Continue Librium at 25mg daily. 3. Encourage individual, group, and milieu therapy. 4. Continue q-15-minute checks for safety. 5. Recommend sober living treatment at the highest level of care to which the patient is willing to commit. Involuntary Hold Information 96 Hour Hold: 96 Hour Involuntary Admission: No Attestations NPU Medical Necessity Statement*: Inpatient hospitalization is medically necessary and the clinically appropriate intervention, at this time. We will monitor medications and make changes as indicated. His likely length of stay is 5-7 days. Coding Level of Care Code Acute Code for [facility] Fwd Diagnoses Bipolar affective, depress, unspec F31.30 PTSD (post-traumatic stress disorder) F43.10 Suicidal ideation R45.851 History of recent fall Z91.81 Lumbar back pain M54.50 Neck pain M54.2 Right knee pain M25.561 Bereavement Z63.4
[2023-07-22] MEDS: atorvastatin 40 mg Tablet 80 MG PO (20:56)
[2023-07-22] MEDS: prazosin 1 mg Capsule 4 MG PO (20:56)
[2023-07-22] MEDS: quetiapine 100 mg Tablet 400 MG PO (20:57)
[2023-07-22] MEDS: cetirizine 10 mg Tablet PO (20:57)
[2023-07-22 21:04] VITALS: BP 153/81; PULSE 60; RESP 16; O2SAT 98
[2023-07-23 06:00] VITALS: BP 83/55; PULSE 88; RESP 17; O2SAT 95
--- NOTE | 2023-07-23 08:48 | PC.NURSE ---
During morning assessment, patient stated that he is doing pretty good . Patient stated that he had his first full night of sleep in years. Patient reports feeling a little groggy this morning. Patient denies feeling anxiety, depression, SI, HI, and A
[2023-07-23] MEDS: pyridoxine 50 mg Tablet 200 MG PO ×2 (09:38→17:45)
[2023-07-23] MEDS: fluticasone nasal spray 16gm Btl 2 SPRAY NASAL (09:38)
[2023-07-23] MEDS: chlordiazePOXIDE 25 mg Capsule PO (09:39)
[2023-07-23] MEDS: CELEcoxib 200 mg Capsule PO ×2 (09:39→17:45)
[2023-07-23] MEDS: citalopram 20 mg Tablet 40 MG PO (09:39)
[2023-07-23] MEDS: folic acid 1 mg Tablet PO (09:39)
[2023-07-23] MEDS: pantoprazole DR 40 mg Tablet PO (09:39)
[2023-07-23] MEDS: multivitamin therapeutic Tablet 1 TAB PO (09:39)
[2023-07-23] MEDS: thiamine 100 mg Tablet PO (09:39)
[2023-07-23] MEDS: hyDROXYzine 25 mg Capsule 50 MG PO ×2 (12:16→18:33)
--- NOTE | 2023-07-23 12:22 | PC.NURSE ---
Patient anxious and agitated, itchy, requesting something for this. Administered vistaril 50mg PO to patient. Patient now in dayroom eating lunch.
[2023-07-23 14:00] VITALS: BP 131/89; PULSE 70; RESP 16; TEMP 37.2; O2SAT 97
--- NOTE | 2023-07-23 15:10 | W.PM.NPUPNS ---
Subjective NPU Subjective: Patient is a 68-year-old white male with PTSD, major depressive disorder and alcohol abuse admitted with suicidal ideation. Patient had reported improved sleep for the first time in several weeks. He stated that he had the best night of sleep in his life. He had continued to endorse feeling depressed but stated that he was starting to feel more hopeful. He had expressed concern about psychotherapy continuing with a [place] based therapist as he stated that he had reservations about being able to open up and be honest with that therapist. He had reported a history of frequent nightmares and reported history of more frequent flashbacks over the last few weeks. He had been less isolative on the milieu. He had reported some improvement in appetite. He had reported continued suspiciousness of others intentions but stated that he was trying to remain positive. Mental Status Exam MSE Comments: This is an older white male, in hospital scrubs, looking somewhat younger than stated age, with fair grooming. There is no evidence of any abnormal involuntary motor movements. His gait was slow and steady. He was seen on the milieu and was less isolative. He was cooperative with exam in moderate distress. Speech was normal in rate and normal in volume. Mood described as a little more hopeful.; affect remained restricted. Thought process was linear and organized. Thought content: He had endorsed no suicidal ideation today. There was no evidence of homicidal ideation. He denied any auditory or visual hallucinations. He did not appear to be responding to internal stimuli. His recent and remote memory was grossly intact. Attention, concentration, were grossly intact. He was alert and oriented times three. Insight was improving and judgment was impaired. Impulse control is poor. Vitals/I&O/Wt Last Vital Signs Temp 98.9 F 07/23/23 14:00 Pulse 70 07/23/23 14:00 Resp 16 07/23/23 14:00 BP 131/89 07/23/23 14:00 Pulse Ox 97 07/23/23 14:00 O2 Del Method Room Air 07/23/23 14:00 Data NPU 07/12/23 05:46 07/12/23 05:46 A&P Assessment and plan (1) Bipolar affective, depress, unspec: (2) PTSD (post-traumatic stress disorder): (3) Suicidal ideation: (4) History of recent fall: (5) Lumbar back pain: (6) Neck pain: (7) Right knee pain: (8) Bereavement: Plan This is a 68-year-old, white male, with a long history of mental health and addiction issues, with several recent losses, loss of sobriety and recent heavy drinking, who presents reporting suicidal thoughts and a high risk of suicidality. 1. Continue B6 200mg bid for extrapyramidal symptoms. 2. Continue current medications. Continue Celexa at 40 mg p.o. daily and continue Continue Seroquel to 400 mg at night to target bipolar depression. Continue prazosin to 4mg at night. Continue Librium at 25mg daily. 3. Encourage individual, group, and milieu therapy. 4. Continue q-15-minute checks for safety. 5. Recommend sober living treatment at the highest level of care to which the patient is willing to commit. Involuntary Hold Information 96 Hour Hold: 96 Hour Involuntary Admission: No Attestations NPU Medical Necessity Statement*: Inpatient hospitalization is medically necessary and the clinically appropriate intervention, at this time. We will monitor medications and make changes as indicated. His likely length of stay is 5-7 days. Coding Level of Care Code Acute Code for [facility] Fwd Diagnoses Bipolar affective, depress, unspec F31.30 PTSD (post-traumatic stress disorder) F43.10 Suicidal ideation R45.851 History of recent fall Z91.81 Lumbar back pain M54.50 Neck pain M54.2 Right knee pain M25.561 Bereavement Z63.4
--- NOTE | 2023-07-23 18:34 | PC.NURSE ---
Patient itching from recent bout with shingles. Administered Vistaril 50mg PO to patient, per patient request.
[2023-07-23] MEDS: cetirizine 10 mg Tablet PO (19:39)
[2023-07-23] MEDS: prazosin 1 mg Capsule 4 MG PO (19:39)
[2023-07-23] MEDS: quetiapine 100 mg Tablet 400 MG PO (19:39)
[2023-07-23] MEDS: atorvastatin 40 mg Tablet 80 MG PO (19:39)
[2023-07-23 20:00] VITALS: BP 138/74; PULSE 64; RESP 16; TEMP 36.9; O2SAT 97
[2023-07-24 06:00] VITALS: BP 131/84; PULSE 91; RESP 18; TEMP 36.8; O2SAT 98
[2023-07-24] MEDS: chlordiazePOXIDE 25 mg Capsule PO (09:00)
[2023-07-24] MEDS: CELEcoxib 200 mg Capsule PO ×2 (09:00→17:03)
[2023-07-24] MEDS: fluticasone nasal spray 16gm Btl 2 SPRAY NASAL (09:01)
[2023-07-24] MEDS: folic acid 1 mg Tablet PO (09:01)
[2023-07-24] MEDS: citalopram 20 mg Tablet 40 MG PO (09:01)
[2023-07-24] MEDS: thiamine 100 mg Tablet PO (09:02)
[2023-07-24] MEDS: multivitamin therapeutic Tablet 1 TAB PO (09:02)
[2023-07-24] MEDS: pantoprazole DR 40 mg Tablet PO (09:02)
[2023-07-24] MEDS: pyridoxine 50 mg Tablet 200 MG PO (09:02)
[2023-07-24] MEDS: hyDROXYzine 25 mg Capsule 50 MG PO (12:35)
[2023-07-24] MEDS: ipratropium-albuterol 3 mL Neb INHALATION (13:46)
[2023-07-24 13:48] VITALS: PULSE 89; RESP 18; O2SAT 94
[2023-07-24 14:00] VITALS: BP 134/77; PULSE 72; RESP 12; TEMP 36.3; O2SAT 97
[2023-07-24] MEDS: nicotine 2 mg Gum BUCCAL (15:26)
--- NOTE | 2023-07-24 15:44 | W.PM.NPUPNS ---
Subjective NPU Subjective: Patient is a 68-year-old white male with PTSD, major depressive disorder and alcohol abuse admitted with suicidal ideation. Patient had reported improved mood. He had stated that he had felt that his sleep had been better. He had expressed desire to go home and care for his 96-year-old mother. Patient had reported feeling more hopeful over the last week. He had continued to endorse PTSD related symptoms but stated that he was feeling more optimistic. Staff notes the patient had been more social and less isolative on the milieu. He had expressed desire to get further help particularly psychotherapy. He had continued report distrust of others but appeared to be warming to the idea of getting more aid. Mental Status Exam MSE Comments: This is an older white male, in hospital scrubs, looking somewhat younger than stated age, with fair grooming. There is no evidence of any abnormal involuntary motor movements. His gait was slow and steady. He was cooperative with exam in less distress with mild psychomotor retardation. Speech was normal in rate and normal in volume. Mood described as hopeful. Affect was brighter today. Thought process was linear and organized. Thought content: He had endorsed no suicidal ideation today. There was no evidence of homicidal ideation. He denied any auditory or visual hallucinations. He did not appear to be responding to internal stimuli. His recent and remote memory was grossly intact. Attention, concentration, were grossly intact. He was alert and oriented times three. Insight was improving and judgment was imroving. Impulse control is improving as well. Vitals/I&O/Wt Last Vital Signs Temp 97.3 F L 07/24/23 14:00 Pulse 72 07/24/23 14:00 Resp 12 07/24/23 14:00 BP 134/77 07/24/23 14:00 Pulse Ox 97 07/24/23 14:00 O2 Del Method Room Air 07/24/23 13:48 Data NPU 07/12/23 05:46 07/12/23 05:46 A&P Assessment and plan (1) Bipolar affective, depress, unspec: (2) PTSD (post-traumatic stress disorder): (3) Suicidal ideation: (4) History of recent fall: (5) Lumbar back pain: (6) Neck pain: (7) Right knee pain: (8) Bereavement: Plan This is a 68-year-old, white male, with a long history of mental health and addiction issues, with several recent losses, loss of sobriety and recent heavy drinking, who presents reporting suicidal thoughts and a high risk of suicidality. 1. Increase B6 300mg bid for extrapyramidal symptoms. 2. Continue current medications. Continue Celexa at 40 mg p.o. daily and continue Continue Seroquel to 400 mg at night to target bipolar depression. Continue prazosin to 4mg at night. Continue Librium at 25mg daily. 3. Encourage individual, group, and milieu therapy. 4. Continue q-15-minute checks for safety. 5. Recommend sober living treatment at the highest level of care to which the patient is willing to commit. Involuntary Hold Information 96 Hour Hold: 96 Hour Involuntary Admission: No Attestations NPU Medical Necessity Statement*: Inpatient hospitalization is medically necessary and the clinically appropriate intervention, at this time. We will monitor medications and make changes as indicated. His likely length of stay is 5-7 days. Coding Level of Care Code Acute Code for [facility] Diagnoses Bipolar affective, depress, unspec F31.30 PTSD (post-traumatic stress disorder) F43.10 Suicidal ideation R45.851 History of recent fall Z91.81 Lumbar back pain M54.50 Neck pain M54.2 Right knee pain M25.561 Bereavement Z63.4
[2023-07-24] MEDS: pyridoxine 50 mg Tablet 300 MG PO (17:03)
[2023-07-24] MEDS: prazosin 1 mg Capsule 4 MG PO (21:02)
[2023-07-24] MEDS: atorvastatin 40 mg Tablet 80 MG PO (21:02)
[2023-07-24] MEDS: quetiapine 100 mg Tablet 400 MG PO (21:02)
[2023-07-24] MEDS: cetirizine 10 mg Tablet PO (21:02)
[2023-07-24 22:00] VITALS: BP 134/75; PULSE 62; RESP 16; TEMP 36.4; O2SAT 97
[2023-07-25 06:00] VITALS: BP 129/67; PULSE 65; RESP 18; O2SAT 95
[2023-07-25] MEDS: chlordiazePOXIDE 25 mg Capsule PO (08:39)
[2023-07-25] MEDS: citalopram 20 mg Tablet 40 MG PO (08:39)
[2023-07-25] MEDS: CELEcoxib 200 mg Capsule PO (08:39)
[2023-07-25] MEDS: pantoprazole DR 40 mg Tablet PO (08:39)
[2023-07-25] MEDS: pyridoxine 50 mg Tablet 300 MG PO (08:39)
[2023-07-25] MEDS: folic acid 1 mg Tablet PO (08:39)
[2023-07-25] MEDS: multivitamin therapeutic Tablet 1 TAB PO (08:39)
[2023-07-25] MEDS: thiamine 100 mg Tablet PO (08:39)
[2023-07-25] MEDS: fluticasone nasal spray 16gm Btl 2 SPRAY NASAL (08:41)
[2023-07-25] MEDS: hyDROXYzine 25 mg Capsule 50 MG PO (09:57)
--- NOTE | 2023-07-25 09:57 | PC.NURSE ---
PRN Hydroxyzine: Hydroxyzine 50 mg PO given to pt for c/o anxiety and itching. Pt cooperative during medication administration. Will continue to monitor.
--- NOTE | 2023-07-25 11:00 | PC.NURSE ---
PRN Hydroxyzine follow up: Hydroxyzine 50 mg PO effective. Pt attending group therapy outside. Pt is calm and cooperative.
--- NOTE | 2023-07-25 12:55 | DCPLANNER ---
IMM completed 07/25/23 @ 1228. Pt was given a copy of his rights and he stated he understood his rights.
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
[2023-07-25 13:13] VITALS: BP 129/67; PULSE 65; RESP 18; O2SAT 95
== END 2023-07-25 13:38 | disposition home or self-care (01) | DRG 882 ==
LOC: ER 06:47 → NP 15:27
PROVIDERS: Emergency Medicine; Admitting Provider Psychiatry & Neurology Psychiatry; Emergency Provider Family Medicine; PCP Family Medicine; Visit Provider Psychiatry & Neurology Psychiatry
DX: F43.10 Post-traumatic stress disorder, unspecified (principal); R45.851 Suicidal ideations; S51.812A Laceration without foreign body of left forearm, initial encounter; X58.XXXA Exposure to other specified factors, initial encounter; M25.561 Pain in right knee; M54.2 Cervicalgia; M54.50 Low back pain, unspecified; F10.10 Alcohol abuse, uncomplicated; Z81.8 Family history of other mental and behavioral disorders; Z62.810 Personal history of physical and sexual abuse in childhood; Z62.811 Personal history of psychological abuse in childhood; Z91.81 History of falling; F31.30 Bipolar disorder, current episode depressed, mild or moderate severity, unspecified
CPT/HCPCS: 12002; 71045; 72040; 72100; 73560; 80053; 80306; 80307; 85025; 87426; 93005; 94640; 97150; 97165; 99285; J7512; Q0163

== ENCOUNTER 2023-08-18 00:48 | Inpatient (IN) | payer OTHER, SELFPAY ==
[2023-08-18] VITALS (7 sets, daily range): BP systolic 155–185; BP diastolic 65–99; PULSE 57–82; RESP 16–20; TEMP 36.4–36.9; O2SAT 94–97; BMI 24.3
--- NOTE | 2023-08-18 00:54 | ECG_ITS ---
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 Measurements Intervals [place] Rate: 76 P: 60 DE: 163 QRS: 31 QRSD: 106 T: 63 QT: 421 QTc: 476 Interpretive Statements SINUS RHYTHM Compared to ECG 07/12/2023 05:46:10 No significant changes Electronically Signed On 08-18-2023 11:09:16 CDT by Mesfin Haines M.D. [email or web address]
[2023-08-18 01:16] LABS: Basophils % 0.3 %; Hematocrit 41.8 % (37-53); Mean Corpuscular Hemoglobin 30.3 pg (27-33); Mean Corpuscular Volume 89.1 fl (82-101); Mean Platelet Volume 10.3 fL (7.4-10.4); Monocytes # 0.1 10^3/uL (0.2-0.9); Monocytes % 1.2 %; Neutrophils # 5.47 10^3/uL (1.8-7.7); Nucleated Red Blood Cells % 0 %; Platelet Count 236 10^3/cmm (157-399); Red Blood Count 4.69 10^6/uL (3.85-5.65); Red Cell Distribution Width 14.2 % (12.1-15.1); White Blood Count 6.59 10^3/uL (3.29-11.43)
[2023-08-18 01:33] LABS: Add Urine Microscopic? NO; Charge for UA Resulting for Rev
[2023-08-18 01:44] LABS: Cocaine Screen Urine Negative (Negative); Opiate Screen Urine Negative (Negative); PCP Screen Urine Negative (Negative); THC Screen Urine Positive (Negative)
[2023-08-18 01:45] LABS: Alanine Aminotransferase 44 U/L (0-41); Albumin Level 4.8 g/dL (3.5-5.2); Alcohol Level 204 mg/dL (0-10); Alkaline Phosphatase 106 U/L (40-130); Anion Gap 18.5 (5-19); Aspartate Amino Transferase 30 U/L (0-40); Blood Urea Nitrogen 9 mg/dL (8-23); Calcium 9.5 mg/dL (8.5-10.5); Carbon Dioxide 24 mmol/L (22-29); Chloride 97 mmol/L (98-107); Glomerular Filtration Rate 74.3 mL/min (90-130); Glucose 159 mg/dL (65-115); Osmolality Calculated 282 mOsm/kg (285-295); Potassium 4.5 mmol/L (3.5-5.1); Sodium 135 mmol/L (136-145); Thyroid Stimulating Hormone 0.43 uIU/mL (0.27-4.20); Total Bilirubin 0.3 mg/dL (0.15-1.2); Total Protein 7.8 g/dL (6.6-8.7)
[2023-08-18 01:47] LABS: Acetaminophen < 5.0 ug/mL (10-30); Salicylate < 0.3 mg/dL (3-10)
[2023-08-18 01:49] LABS: Bilirubin Urine Neg (Negative); Blood Urine Neg (Negative); Glucose Urine UA Norm (Normal); Ketones Urine Negative (Negative); Leukocyte Esterase Urine Negative (Negative); Nitrate Urine Negative (Negative); Protein Urine Neg (Negative); Specific Gravity, Urine 1.005 (1.005-1.030); Sulfosalicylic Acid Urine Negative (Negative); Urine Appearance Clear (CLEAR); Urine Color Yellow (Yellow); Urobilinogen Urine Neg (Negative); pH Urine 8 (5-7)
--- NOTE | 2023-08-18 02:03 | ED_ITS ---
HPI - Alcohol General: Chief Complaint: Alcohol Stated Complaint: SI, ETOH Time Seen by Provider: 08/18/23 00:52 History of Present Illness: 68-year-old male with history of depression and PTSD. He presents after making suicidal statements. It is believed that his girlfriend called EMS. He has medical problems including hypertension, chronic lung disease and alcoholism. He had been drinking earlier in the evening. PFS ED PFSH: Medical History Atypical chest pain Chronic obstructive pulmonary disease Chronic steroid use Coronary artery disease COVID-19 Elevated troponin High risk medication use Hypertensive urgency Resolved Immunization counseling Seronegative rheumatoid arthritis of both hands Surgical History History of neck surgery Family History Other CAD (coronary artery disease) Cancer Dementia Hyperlipidemia Hypertension Denies family history of Diabetes Chronic kidney disease (CKD) Anesthesia complication Bleeding disorder Lung disease Stroke Social History Smoking and tobacco status: current some day smoker cigarettes Packs smoked per day: 1 Years cigarettes smoked: 50 and cigars Smoking risk assessment/counseling performed?: Yes Alcohol intake: never Counseling given: No Substance/Drug Use: never Counseling given: No Lives independently: Yes Household members: none Marital status: Single service: Yes Current occupational status: 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 Do you think of yourself as: Straight/Heterosexual Current gender identity: Male Course Vital Signs: Vital signs: Vital Signs Temperature 98 F 08/18/23 00:49 Pulse Rate 78 08/18/23 01:34 Respiratory Rate 18 08/18/23 01:34 Blood Pressure 168/88 08/18/23 01:34 Pulse Oximetry 96 08/18/23 01:00 Oxygen Delivery Me thod Room Air 08/18/23 01:00 MDM - Alcohol Lab Data 08/18/23 01:07 08/18/23 01:07 Laboratory Results WBC 6.59 10^3/uL (3.29-11.43) 08/18/23 01:07 RBC 4.69 10^6/uL (3.85-5.65) 08/18/23 01:07 Hgb 14.20 g/dL (11.27-16.99) 08/18/23 01:07 Hct 41.8 % (37-53) 08/18/23 01:07 MCV 89.1 fl (82-101) 08/18/23 01:07 MCH 30.3 pg (27-33) 08/18/23 01:07 MCHC 34.0 g/dL (30-55) 08/18/23 01:07 RDW 14.2 % (12.1-15.1) 08/18/23 01:07 Plt Count 236 10^3/cmm (157-399) 08/18/23 01:07 MPV 10.3 fL (7.4-10.4) 08/18/23 01:07 Neut % (Auto) 83.0 % 08/18/23 01:07 Lymph % (Auto) 15.0 % 08/18/23 01:07 [place] % (Auto) 1.2 % 08/18/23 01:07 Eos % (Auto) 0.0 % 08/18/23 01:07 Baso % (Auto) 0.3 % 08/18/23 01:07 Neut # (Auto) 5.47 10^3/uL (1.8-7.7) 08/18/23 01:07 Lymph # (Auto) 1.0 10^3/uL (0.8-4.8) 08/18/23 01:07 [place] # (Auto) 0.1 10^3/uL (0.2-0.9) L 08/18/23 01:07 Eos # (Auto) 0.0 10^3/uL (0.0-0.8) 08/18/23 01:07 Baso # (Auto) 0.0 10^3/uL (0.0-0.1) 08/18/23 01:07 Nucleated RBC % (auto) 0 % 08/18/23 01:07 Nucleated RBCs # 0.0 /100WBC 08/18/23 01:07 Sodium 135 mmol/L (136-145) L 08/18/23 01:07 Potassium 4.5 mmol/L (3.5-5.1) 08/18/23 01:07 Chloride 97 mmol/L (98-107) L 08/18/23 01:07 Carbon Dioxide 24 mmol/L (22-29) 08/18/23 01:07 Anion Gap 18.5 (5-19) 08/18/23 01:07 BUN 9 mg/dL (8-23) 08/18/23 01:07 Creatinine 1.0 mg/dL (0.7-1.2) 08/18/23 01:07 GFR Calculation 74.3 mL/min (90-130) L 08/18/23 01:07 Glucose 159 mg/dL (65-115) H 08/18/23 01:07 Calculated Osmolality 282 mOsm/kg (285-295) L 08/18/23 01:07 Calcium 9.5 mg/dL (8.5-10.5) 08/18/23 01:07 Total Bilirubin 0.3 mg/dL (0.15-1.2) 08/18/23 01:07 AST 30 U/L (0-40) 08/18/23 01:07 ALT 44 U/L (0-41) H 08/18/23 01:07 Alkaline Phosphatase 106 U/L (40-130) 08/18/23 01:07 Total Protein 7.8 g/dL (6.6-8.7) 08/18/23 01:07 Albumin 4.8 g/dL (3.5-5.2) 08/18/23 01:07 Globulin 3.0 g/dL (1.3-4.6) 08/18/23 01:07 TSH 0.43 uIU/mL (0.27-4.20) 08/18/23 01:07 Urine Color Yellow (Yellow) 08/18/23 01:20 Urine Appearance Clear (CLEAR) 08/18/23 01:20 Urine pH 8 (5-7) H 08/18/23 01:20 Ur Specific [place] 1.005 (1.005-1.030) 08/18/23 01:20 Urine Protein Neg (Negative) 08/18/23 01:20 Urine Glucose (UA) Norm (Normal) 08/18/23 01:20 Urine Ketones Negative (Negative) 08/18/23 01:20 Urine Blood Neg (Negative) 08/18/23 01:20 Urine Nitrate Negative (Negative) 08/18/23 01:20 Urine Bilirubin Neg (Negative) 08/18/23 01:20 Prot Sulfosalicylic Acd Negative (Negative) 08/18/23 01:20 Urine Urobilinogen Neg mg/dL (Negative) 08/18/23 01:20 Ur Leukocyte Esterase Negative (Negative) 08/18/23 01:20 Salicylates < 0.3 mg/dL (3-10) L 08/18/23 01:07 Urine Opiates Screen Negative ng/mL (Negative) 08/18/23 01:20 Acetaminophen < 5.0 ug/mL (10-30) L 08/18/23 01:07 Ur Phencyclidine Scrn Negative ng/mL (Negative) 08/18/23 01:20 Urine Cocaine Screen Negative ng/mL (Negative) 08/18/23 01:20 U Marijuana (THC) Screen Positive ng/mL (Negative) H 08/18/23 01:20 Ethyl Alcohol 204 mg/dL (0-10) H 08/18/23 01:07 Discharge Plan Discharge Condition: Stable Prescriptions: No Action montelukast 10 mg tablet 10 mg PO DAILY prazosin 2 mg capsule 4 mg PO DAILY trazodone 100 mg tablet 100 mg PO DAILY Stiolto Respimat 2.5-2.5 mcg/actuation mist 2 puff inhalation DAILY 180 Days Qty: 24 1RF tramadol 50 mg tablet 50 mg PO Q6H PRN (Reason: Pain) celecoxib [Celebrex] 200 mg capsule 200 mg PO BID Qty: 60 0RF methotrexate sodium 2.5 mg tablet See Rx Instructions PO .week Qty: 150 0RF Rx Instructions: Split dose.. take 10 tabs on the same day once a week, take 5 tabs in the AM and 5 tabs in the PM prednisone 10 mg tablet 10 mg PO DAILY PRN (Reason: joint pain) Qty: 90 1RF cetirizine [Zyrtec] 10 mg Tablet 10 mg PO DAILY@20 naproxen 250 mg Tablet 250 mg PO BID PRN (Reason: Pain) Combivent Respimat 20-100 mcg/actuation Mist 1 puff INHALATION QID PRN (Reason: Shortness Of Breath) metoprolol succinate 50 mg tablet extended release 24 hr 50 mg PO DAILY Qty: 30 0RF Vitamin B-1 (mononitrate) 100 mg Tablet 100 mg PO DAILY 30 Days Qty: 30 1RF citalopram 40 mg tablet 40 mg PO DAILY 30 Days Qty: 30 1RF atorvastatin 40 mg Tablet 80 mg PO BEDTIME 30 Days Qty: 60 1RF chlordiazepoxide HCl 25 mg Capsule 25 mg PO DAILY 30 Days Qty: 30 1RF quetiapine 400 mg tablet 400 mg PO BEDTIME 30 Days Qty: 30 1RF pyridoxine (vitamin B6) 100 mg tablet 300 mg PO BID 30 Days Qty: 180 1RF pantoprazole 40 mg Tablet,Delayed Release (Dr/Ec) 40 mg PO DAILY 30 Days Qty: 30 1RF hydroxyzine pamoate 25 mg Capsule 50 mg PO Q6H PRN (Reason: Anxiety) 30 Days Qty: 120 1RF Referrals: Stephy Nayak MD [Primary Care Provider] - Coding Level of Care Code ED Assistant To The President for Lucio Cook
[2023-08-18 02:06] LABS: Amphetamines Screen Urine Negative (Negative); Barbiturates Screen Urine Negative (Negative); Benzodiazepines Screen Urine Positive (Negative)
--- NOTE | 2023-08-18 02:07 | W.ED.PSYCHS ---
HPI - Psych General: Chief Complaint: Alcohol Stated Complaint: SI, ETOH Time Seen by Provider: 08/18/23 00:52 History of Present Illness: 68-year-old male with history of depression and PTSD. He presents after making suicidal statements. It is believed that his girlfriend called EMS. He has medical problems including hypertension, chronic lung disease and alcoholism. He had been drinking earlier in the evening. He was admitted to this facility, released on 07/25 for similar complaints. Associated symptoms: Reports depression and suicidal ideation Review of Systems Const: Denies: fever(s) Eyes: Denies: change in vision ENMT: Denies: throat pain Card: Denies: chest pain Resp: Denies: dyspnea GI: Denies: abdominal pain or vomiting Neuro: Denies: headache(s) Psych: Reports: depression and suicidal ideation PFS ED PFSH: Medical History Atypical chest pain Chronic obstructive pulmonary disease Chronic steroid use Coronary artery disease COVID-19 Elevated troponin High risk medication use Hypertensive urgency Resolved Immunization counseling Major depressive disorder Seronegative rheumatoid arthritis of both hands Surgical History History of neck surgery Family History Other CAD (coronary artery disease) Cancer Dementia Hyperlipidemia Hypertension Denies family history of Diabetes Chronic kidney disease (CKD) Anesthesia complication Bleeding disorder Lung disease Stroke Social History Smoking and tobacco status: current some day smoker cigarettes Packs smoked per day: 1 Years cigarettes smoked: 50 and cigars Smoking risk assessment/counseling performed?: Yes Alcohol intake: never Counseling given: No Substance/Drug Use: never Counseling given: No Lives independently: Yes Household members: none Marital status: Single service: Yes Current occupational status: retired 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 Do you think of yourself as: Straight/Heterosexual Current gender identity: Male Physical Exam Const: GENERAL APPEARANCE: cooperative and odor of alcohol detected; not ill appearing and not frail appearing ORIENTATION/CONSCIOUSNESS: Yes awake HENMT: COMMON NORMALS: normocephalic, atraumatic and Normal external nose present HEAD & SCALP: normocephalic and atraumatic FACE & SINUS: normal facial exam and face symmetric NOSE: Normal external nose present Eye: COMMON NORMALS: Equal, round and reactive pupils present and EOMs intact bilaterally PUPIL: Yes Equal, round and reactive pupils present Neck/C-Spine: GENERAL: Yes trachea midline Chest: CHEST: Yes Symmetrical chest wall rise Resp: COMMON NORMALS: normal respiratory effort, No retractions, No use of accessory muscles and clear to auscultation bilaterally AUSCULTATION: clear to auscultation bilaterally Cardio: COMMON NORMALS: regular rate and regular rhythm RATE: regular rate RHYTHM: regular rhythm GI: COMMON NORMALS: Normal to inspection, nondistended, normoactive bowel sounds present Extremity: COMMON NORMALS: no pedal edema Neuro: CAPRI COMA SCALE: document GCS findings Capri coma scale eye opening: Spontaneous Casar coma scale verbal response: Orientated Casar coma scale motor response: Obey commands Casar coma scale total score: 15 SENSORY EXAM: Yes extremities (intact) Psych: COMMON NORMALS: speech normal SPEECH: Yes normal speech Skin: COMMON NORMALS: no rashes or lesions noted GENERAL SKIN EXAM: no rashes or lesions noted Course Vital Signs: Vital signs: Vital Signs Temperature 98 F 08/18/23 00:49 Pulse Rate 78 08/18/23 01:34 Respiratory Rate 18 08/18/23 01:34 Blood Pressure 168/88 08/18/23 01:34 Pulse Oximetry 96 08/18/23 01:00 Oxygen Delivery Me thod Room Air 08/18/23 01:00 [facility] - Psych Medical Decision Making The patient has been compliant here. He is functional. No history of dementia. CBC is normal. BMP is not remarkable. Urine drug screen is positive for marijuana and benzodiazepines. He is prescribed the latter. Alcohol level is 200. Other laboratory not remarkable. As he was admitted earlier in the month to this facility, assuming we are okay to take him on the neuropsychiatric unit again, given no change in health history. Have a call out to psychiatry. Medically, he is stable. Still awaiting a callback from psychiatry. Medically, still stable. Lab Data 08/18/23 01:07 08/18/23 01:07 Laboratory Results WBC 6.59 10^3/uL (3.29-11.43) 08/18/23 01:07 RBC 4.69 10^6/uL (3.85-5.65) 08/18/23 01:07 Hgb 14.20 g/dL (11.27-16.99) 08/18/23 01:07 Hct 41.8 % (37-53) 08/18/23 01:07 MCV 89.1 fl (82-101) 08/18/23 01:07 MCH 30.3 pg (27-33) 08/18/23 01:07 MCHC 34.0 g/dL (30-55) 08/18/23 01:07 RDW 14.2 % (12.1-15.1) 08/18/23 01:07 Plt Count 236 10^3/cmm (157-399) 08/18/23 01:07 MPV 10.3 fL (7.4-10.4) 08/18/23 01:07 Neut % (Auto) 83.0 % 08/18/23 01:07 Lymph % (Auto) 15.0 % 08/18/23 01:07 [place] % (Auto) 1.2 % 08/18/23 01:07 Eos % (Auto) 0.0 % 08/18/23 01:07 Baso % (Auto) 0.3 % 08/18/23 01:07 Neut # (Auto) 5.47 10^3/uL (1.8-7.7) 08/18/23 01:07 Lymph # (Auto) 1.0 10^3/uL (0.8-4.8) 08/18/23 01:07 [place] # (Auto) 0.1 10^3/uL (0.2-0.9) L 08/18/23 01:07 Eos # (Auto) 0.0 10^3/uL (0.0-0.8) 08/18/23 01:07 Baso # (Auto) 0.0 10^3/uL (0.0-0.1) 08/18/23 01:07 Nucleated RBC % (auto) 0 % 08/18/23 01:07 Nucleated RBCs # 0.0 /100WBC 08/18/23 01:07 Sodium 135 mmol/L (136-145) L 08/18/23 01:07 Potassium 4.5 mmol/L (3.5-5.1) 08/18/23 01:07 Chloride 97 mmol/L (98-107) L 08/18/23 01:07 Carbon Dioxide 24 mmol/L (22-29) 08/18/23 01:07 Anion Gap 18.5 (5-19) 08/18/23 01:07 BUN 9 mg/dL (8-23) 08/18/23 01:07 Creatinine 1.0 mg/dL (0.7-1.2) 08/18/23 01:07 GFR Calculation 74.3 mL/min (90-130) L 08/18/23 01:07 Glucose 159 mg/dL (65-115) H 08/18/23 01:07 Calculated Osmolality 282 mOsm/kg (285-295) L 08/18/23 01:07 Calcium 9.5 mg/dL (8.5-10.5) 08/18/23 01:07 Total Bilirubin 0.3 mg/dL (0.15-1.2) 08/18/23 01:07 AST 30 U/L (0-40) 08/18/23 01:07 ALT 44 U/L (0-41) H 08/18/23 01:07 Alkaline Phosphatase 106 U/L (40-130) 08/18/23 01:07 Total Protein 7.8 g/dL (6.6-8.7) 08/18/23 01:07 Albumin 4.8 g/dL (3.5-5.2) 08/18/23 01:07 Globulin 3.0 g/dL (1.3-4.6) 08/18/23 01:07 TSH 0.43 uIU/mL (0.27-4.20) 08/18/23 01:07 Urine Color Yellow (Yellow) 08/18/23 01:20 Urine Appearance Clear (CLEAR) 08/18/23 01:20 Urine pH 8 (5-7) H 08/18/23 01:20 Ur Specific [place] 1.005 (1.005-1.030) 08/18/23 01:20 Urine Protein Neg (Negative) 08/18/23 01:20 Urine Glucose (UA) Norm (Normal) 08/18/23 01:20 Urine Ketones Negative (Negative) 08/18/23 01:20 Urine Blood Neg (Negative) 08/18/23 01:20 Urine Nitrate Negative (Negative) 08/18/23 01:20 Urine Bilirubin Neg (Negative) 08/18/23 01:20 Prot Sulfosalicylic Acd Negative (Negative) 08/18/23 01:20 Urine Urobilinogen Neg mg/dL (Negative) 08/18/23 01:20 Ur Leukocyte Esterase Negative (Negative) 08/18/23 01:20 Salicylates < 0.3 mg/dL (3-10) L 08/18/23 01:07 Urine Opiates Screen Negative ng/mL (Negative) 08/18/23 01:20 Acetaminophen < 5.0 ug/mL (10-30) L 08/18/23 01:07 Ur Barbiturates Screen Negative ng/mL (Negative) 08/18/23 01:20 Ur Phencyclidine Scrn Negative ng/mL (Negative) 08/18/23 01:20 Ur Amphetamines Screen Negative ng/mL (Negative) 08/18/23 01:20 U Benzodiazepines Scrn Positive ng/mL (Negative) H 08/18/23 01:20 Urine Cocaine Screen Negative ng/mL (Negative) 08/18/23 01:20 U Marijuana (THC) Screen Positive ng/mL (Negative) H 08/18/23 01:20 Ethyl Alcohol 204 mg/dL (0-10) H 08/18/23 01:07 No radiology studies performed this visit Discharge Plan Discharge Patient Disposition: Admitted As Inpatient Admit Provider: Jose Paniagua Clinical Impression: Suicidal ideation, Alcoholic intoxication Condition: Stable Coding Level of Care Code ED Wool Sacker for Lucio Cook
--- NOTE | 2023-08-18 03:23 | PC.NURSE ---
96 Hour Involuntary Hold Rights have been presented to patient and a copy of the same has been provided to him. Incident Commander Rebeca Elizabeth was present at bedside at the time of presentation.
--- NOTE | 2023-08-18 05:46 | PC.ADMIT ---
RR [address] Admission Note: The patient,Greg Duncan,68 y/o, was given written information regarding hospital policies, unit procedures and contact persons. Patient's smoking status: current some day smoker.1/2 PACK A DAY Vital Signs - 8 hr 08/18/23 00:49 08/18/23 01:00 08/18/23 01:34 Temperature 98 F Pulse Rate 82 76 78 Respiratory Rate 18 20 H 18 Blood Pressure 172/92 168/88 Pulse Oximetry 94 96 Oxygen Delivery Method Room Air 08/18/23 04:41 08/18/23 04:41 Temperature 98.5 F Pulse Rate 67 Respiratory Rate 16 Blood Pressure 164/79 Pulse Oximetry 96 Oxygen Delivery Method Room Air ADMITTED FROM ER VIA WHEELCHAIR AND SECURITY AT 436 AM. PT IS ON AN INVOLUNTARY HOLD THAT ENDS ON 08/23/23 AT 0001. PT WAS ADMITTED TO THE [facility] PREVIOUSLY ON 07/25/23 FOR ALCOHOL WITHDRAWAL. PT STATES HE IS HERE AGAIN DUE TO LOSING IT AGAIN AND I AM DRINKING PRETTY HEAVY THE LAST WEEK. BAL WAS REPORTED TO BE 207 IN THE ER. PT REPORTS HE HAS BEEN DRINKING APPROXIMATELY 2 FIFTHS A DAY FOR THE PAST WEEK. ENDORSES SUICIDAL IDEATION WITH NO SPECIFIC PLAN, STATES I'M JUST DONE WITH IT. UDS POSITIVE FOR THC. SKIN ASSESSMENT REVEALS MULTIPLE SCATTERED BRUISING TO BILATERAL ARMS WITH SCABS AND SMALL SKIN TEARS, SKIN TEAR TO RIGHT INNER ARM AND SCRAPE TO BACK OF LEG BEHIND KNEE, RIGHT LEG WITH 3 DRIED SCABS TO THE SHINS. NO TREATMENT NEEDED. NO SIGN OR SYMPTOMS OF INFECTION NOTED. PT REPORTS HAVING AVH AT TIMES BUT FOR THIS ASSESSMENT DENIES. DENIES HI AND DENIES PAIN. PT WAS MADE COMFORTABLE GIVEN A DINNER TO EAT AND ATE 100%. MEDICATIONS RECONCILED AND HOME MEDICATIONS WERE RESTARTED ORDERED. PT STATES HE HASN'T TAKEN HIS HOME MEDS FOR 3-4 DAY DUE TO HIS INTENSE DRINKING. GAIT IS UNSTEADY. PT ASSISTED TO BED AND HE IS CURRENTLY RESTING. ORIENTED TO UNIT. ALL QUESTIONS ANSWERED AND SUPPORT VOICED.
[2023-08-18] MEDS: multivitamin therapeutic Tablet 1 TAB PO (09:51)
[2023-08-18] MEDS: metoprolol succinate ER (24 HR) 50 mg Tablet PO (09:51)
[2023-08-18] MEDS: CELEcoxib 200 mg Capsule PO ×2 (09:51→17:45)
[2023-08-18] MEDS: montelukast sodium 10 mg Tablet PO (09:51)
[2023-08-18] MEDS: folic acid 1 mg Tablet PO (09:51)
[2023-08-18] MEDS: chlordiazePOXIDE 25 mg Capsule PO (09:51)
[2023-08-18] MEDS: pantoprazole DR 40 mg Tablet PO (09:51)
[2023-08-18] MEDS: citalopram 20 mg Tablet 40 MG PO (09:51)
[2023-08-18] MEDS: thiamine 100 mg Tablet PO (09:51)
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
[2023-08-18] MEDS: naltrexone hcl 50 mg Tablet PO (13:38)
[2023-08-18] MEDS: LORazepam 2 mg Tablet PO (18:28)
[2023-08-18] MEDS: atorvastatin 40 mg Tablet 80 MG PO (20:47)
[2023-08-18] MEDS: quetiapine 100 mg Tablet 400 MG PO (20:47)
[2023-08-18] MEDS: cetirizine 10 mg Tablet PO (20:47)
[2023-08-18] MEDS: trazodone 100 mg Tablet PO (20:47)
[2023-08-18] MEDS: prazosin 1 mg Capsule 4 MG PO (20:47)
[2023-08-18] MEDS: calcium carbonate 500 mg Chew Tablet 1000 MG PO (21:23)
[2023-08-19 06:00] VITALS: BP 127/69; PULSE 62; RESP 20; O2SAT 97
--- NOTE | 2023-08-19 07:53 | PC.NURSE ---
During morning assessment, patient said that he feels great, feeling good . Patient stated that she wants an antabuse shot. Patient denies all. Patient appears to be in good spirits. Patient stated that he had just one of them little fall apart moments .
[2023-08-19] MEDS: citalopram 20 mg Tablet 40 MG PO (08:18)
[2023-08-19] MEDS: CELEcoxib 200 mg Capsule PO ×2 (08:19→17:29)
[2023-08-19] MEDS: folic acid 1 mg Tablet PO (08:19)
[2023-08-19] MEDS: thiamine 100 mg Tablet PO (08:19)
[2023-08-19] MEDS: naltrexone hcl 50 mg Tablet PO (08:19)
[2023-08-19] MEDS: multivitamin therapeutic Tablet 1 TAB PO (08:19)
[2023-08-19] MEDS: montelukast sodium 10 mg Tablet PO (08:19)
[2023-08-19] MEDS: chlordiazePOXIDE 25 mg Capsule PO (08:19)
[2023-08-19] MEDS: metoprolol succinate ER (24 HR) 50 mg Tablet PO (08:19)
[2023-08-19] MEDS: pantoprazole DR 40 mg Tablet PO (08:19)
[2023-08-19 14:00] VITALS: BP 134/78; PULSE 81; RESP 18; TEMP 36.7; O2SAT 93
--- NOTE | 2023-08-19 15:38 | P.NPUPN_ITS ---
Subjective NPU Subjective: Patient is a 68-year-old white male with PTSD, major depressive disorder and alcohol abuse admitted with suicidal ideation. The patient reported no side effects from his naltrexone but reported no change in his cravings for alcohol. He reported that he was motivated to return home and stated that he was interested in considering a program to reduce alcohol consumption. He did state that he had to care for his 96-year-old mother at home and reported that he was not feeling as hopeless as before. He reported no active suicidal thoughts. He was able to attend groups and reported less anxiety and continued reported improved sleep with the Seroquel that had been previously prescribed. Mental Status Exam MSE Comments: This is an older white male, in hospital scrubs, looking somewhat younger than stated age, with poor grooming and good eye contact. No abnormal movements, except for mild psychomotor retardation. He was cooperative with exam in mild to moderate distress. Speech was normal in rate and normal in volume. Mood described as depressed; affect was remained restricted. Thought process was linear and organized. Thought content: He had minimized suicidal ideation at thi s time. Denied any homicidal ideation. He denied any auditory or visual hallucinations. He did not appear to be responding to internal stimuli. Attention, concentration, and memory appeared intact, but none were formally tested. He was alert and oriented times three. Insight and judgment was i mpaired. Impulse control is poor. Vitals/I&O/Wt Last Vital Signs Temp 98.1 F 08/19/23 14:00 Pulse 81 08/19/23 14:00 Resp 18 08/19/23 14:00 BP 134/78 08/19/23 14:00 Pulse Ox 93 08/19/23 14:00 O2 Del Method Room Air 08/19/23 14:00 Weight last 48 hrs Weight 77.111 kg Weight 77.111 kg Weight 77.111 kg Data NPU 08/18/23 01:07 08/18/23 01:07 A&P Assessment and plan (1) PTSD (post-traumatic stress disorder): (2) Major depressive disorder: (3) Alcohol abuse: (4) Suicidal ideation: (5) History of recent fall: (6) Lumbar back pain: (7) Neck pain: (8) Right knee pain: (9) Bereavement: Plan This is a 68-year-old, white male, with a long history of mental health and addiction issues, with several recent losses, loss of sobriety and recent heavy drinking, who presents reporting suicidal thoughts and a high risk of suicidality. 1. Continue CIWA protocol. 2. restart current medications as previously prescribed. 3. Encourage individual, group, and milieu therapy. 4. Continue q-15-minute checks for safety. 5. Recommend sober living treatment at the highest level of care to which the patient is willing to commit. 6. Continue naltrexone 50mg daily with plan for Vivitrol if oral naltrexone is tolerated. Continue celexa, and seroquel as prescribed, tapering librium down to 20mg daily. Involuntary Hold Information 96 Hour Hold: 96 Hour Involuntary Admission: No 96 Hour Hold Ending Date: 08/23/23 96 Hour Hold Ending Time: 00:01 Attestations U Medical Necessity Statement*: Inpatient hospitalization is medically necessary and the clinically appropriate intervention at this time. We will monitor medications and make changes as indicated. His likely length of stay is three to five days. Coding Level of Care Code Acute Code for [facility] Fwd Diagnoses PTSD (post-traumatic stress disorder) F43.10 Major depressive disorder F32.9 Alcohol abuse F10.10 Suicidal ideation R45.851 History of recent fall Z91.81 Lumbar back pain M54.50 Neck pain M54.2 Right knee pain M25.561 Bereavement Z63.4
[2023-08-19] MEDS: flu vacc pf 2023-24 (6 mos+) 60 MCG IM (15:58)
[2023-08-19] MEDS: prazosin 1 mg Capsule 4 MG PO (20:25)
[2023-08-19] MEDS: quetiapine 100 mg Tablet 400 MG PO (20:25)
[2023-08-19] MEDS: atorvastatin 40 mg Tablet 80 MG PO (20:26)
[2023-08-19] MEDS: trazodone 100 mg Tablet PO (20:26)
[2023-08-19] MEDS: cetirizine 10 mg Tablet PO (20:26)
[2023-08-19 20:27] VITALS: BP 122/78; PULSE 56; RESP 16; TEMP 36.6; O2SAT 97
[2023-08-20 06:00] VITALS: BP 118/70; PULSE 71; RESP 20; TEMP 36.8; O2SAT 97
[2023-08-20] MEDS: CELEcoxib 200 mg Capsule PO ×2 (09:06→18:12)
[2023-08-20] MEDS: multivitamin therapeutic Tablet 1 TAB PO (09:06)
[2023-08-20] MEDS: citalopram 20 mg Tablet 40 MG PO (09:06)
[2023-08-20] MEDS: folic acid 1 mg Tablet PO (09:06)
[2023-08-20] MEDS: montelukast sodium 10 mg Tablet PO (09:06)
[2023-08-20] MEDS: metoprolol succinate ER (24 HR) 50 mg Tablet PO (09:06)
[2023-08-20] MEDS: naltrexone hcl 50 mg Tablet PO (09:06)
[2023-08-20] MEDS: chlordiazePOXIDE 10 mg Capsule 20 MG PO (09:06)
[2023-08-20] MEDS: thiamine 100 mg Tablet PO (09:06)
[2023-08-20] MEDS: pantoprazole DR 40 mg Tablet PO (09:06)
--- NOTE | 2023-08-20 09:25 | PC.NURSE ---
During morning assessment, patient stated that he slept well during the night. Patient reports mild anxiety about going home; patient is eager to go home so he can help his mother. Patient denies SI, HI, AVH, and depression.
[2023-08-20] MEDS: hyDROXYzine 25 mg Capsule 50 MG PO (12:01)
[2023-08-20 14:00] VITALS: BP 99/61; PULSE 53; RESP 16; TEMP 36.6; O2SAT 97
[2023-08-20] MEDS: OLANZapine 5 mg ODT PO (15:30)
--- NOTE | 2023-08-20 16:12 | P.NPUPN_ITS ---
Subjective NPU Subjective: Patient is a 68-year-old white male with PTSD, major depressive disorder and alcohol abuse admitted with suicidal ideation. Patient reported no side effects from the naltrexone. He had reported motivation to return home and care for his 96-year-old mother. He reported that he was not feeling as depressed. He reported adequate sleep. He reported some periods of having occasional flashba cks regarding his trauma but reported that for the most part he felt safe here. He had reported continued cravings for alcohol. He had expressed interest in consideration for Vivitrol and this medication was to be ordered and given to him tomorrow. Mental Status Exam MSE Comments: This is an older white male, in hospital scrubs, looking somewhat younger than stated age, with fair grooming and good eye contact. No abnormal movements, except for mild psychomotor retardation. He was cooperative with exam in mild to moderate distress. Speech was normal in rate and normal in volume. Mood described as a little better; affect was remained restricted. Thought process was linear and organized. Thought content: He had minimized suicidal ideation at this time. Denied any homicidal ideation. He denied any auditory or visual hallucinations. He did not appear to be responding to internal stimuli. Attention, concentration, and memory appeared intact, but none were formally tested. He was alert and oriented times three. Insight was improving and judgment was limited. Impulse control is poor. Vitals/I&O/Wt Last Vital Signs Temp 97.9 F 08/20/23 14:00 Pulse 53 L 08/20/23 14:00 Resp 16 08/20/23 14:00 BP 99/61 08/20/23 14:00 Pulse Ox 97 08/20/23 14:00 O2 Del Method Room Air 08/20/23 06:00 Data NPU 08/18/23 01:07 08/18/23 01:07 A&P Assessment and plan (1) PTSD (post-traumatic stress disorder): (2) Major depressive disorder: (3) Alcohol abuse: (4) Suicidal ideation: (5) History of recent fall: (6) Lumbar back pain: (7) Neck pain: (8) Right knee pain: (9) Bereavement: Plan This is a 68-year-old, white male, with a long history of mental health and addiction issues, with several recent losses, loss of sobriety and recent heavy drinking, who presents reporting suicidal thoughts and a high risk of suicidality. 1. Continue CIWA protocol. 2. restart current medications as previously prescribed. 3. Encourage individual, group, and milieu therapy. 4. Continue q-15-minute checks for safety. 5. Recommend sober living treatment at the highest level of care to which the patient is willing to commit. 6. Start Vivitrol (IM Naltrexone) q28 days tommorow and will discontinue oral naltrexone. Continue celexa, and seroquel as prescribed, continue with tapering librium down to 10mg daily. Involuntary Hold Information 96 Hour Hold: 96 Hour Involuntary Admission: No 96 Hour Hold Ending Date: 08/23/23 96 Hour Hold Ending Time: 00:01 Attestations NPU Medical Necessity Statement*: Inpatient hospitalization is medically necessary and the clinically appropriate intervention at this time. We will monitor medications and make changes as indicated. His likely length of stay is 1-2 days. Coding Level of Care Code Acute Code for [facility] Fwd Diagnoses PTSD (post-traumatic stress disorder) F43.10 Major depressive disorder F32.9 Alcohol abuse F10.10 Suicidal ideation R45.851 History of recent fall Z91.81 Lumbar back pain M54.50 Neck pain M54.2 Right knee pain M25.561 Bereavement Z63.4
[2023-08-20 19:47] VITALS: BP 83/54; PULSE 54; RESP 17; TEMP 36.6; O2SAT 95
[2023-08-20] MEDS: quetiapine 100 mg Tablet 400 MG PO (20:52)
[2023-08-20] MEDS: TRAMadol 50 mg Tablet PO (20:52)
[2023-08-20] MEDS: cetirizine 10 mg Tablet PO (20:52)
[2023-08-20] MEDS: trazodone 100 mg Tablet PO (20:52)
[2023-08-20] MEDS: atorvastatin 40 mg Tablet 80 MG PO (20:53)
[2023-08-20] MEDS: prazosin 1 mg Capsule 4 MG PO (20:53)
[2023-08-21 06:00] VITALS: BP 102/59; PULSE 62; RESP 16; TEMP 37.3; O2SAT 97
[2023-08-21] MEDS: multivitamin therapeutic Tablet 1 TAB PO (08:52)
[2023-08-21] MEDS: citalopram 20 mg Tablet 40 MG PO (08:52)
[2023-08-21] MEDS: metoprolol succinate ER (24 HR) 50 mg Tablet PO (08:52)
[2023-08-21] MEDS: CELEcoxib 200 mg Capsule PO (08:52)
[2023-08-21] MEDS: montelukast sodium 10 mg Tablet PO (08:52)
[2023-08-21] MEDS: thiamine 100 mg Tablet PO (08:52)
[2023-08-21] MEDS: chlordiazePOXIDE 10 mg Capsule 20 MG PO (08:52)
[2023-08-21] MEDS: naltrexone hcl 50 mg Tablet PO (08:52)
[2023-08-21] MEDS: pantoprazole DR 40 mg Tablet PO (08:53)
[2023-08-21] MEDS: folic acid 1 mg Tablet PO (08:53)
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
== END 2023-08-21 13:20 | disposition home or self-care (01) | DRG 885 ==
LOC: ER 02:21 → NP 03:06
PROVIDERS: Admitting Provider Psychiatry & Neurology Psychiatry; Emergency Provider Emergency Medicine; PCP Family Medicine; Visit Provider Psychiatry & Neurology Psychiatry
DX: F33.9 Major depressive disorder, recurrent, unspecified (principal); R45.851 Suicidal ideations; F43.10 Post-traumatic stress disorder, unspecified; F10.129 Alcohol abuse with intoxication, unspecified; Y90.7 Blood alcohol level of 200-239 mg/100 ml; Z63.4 Disappearance and death of family member
CPT/HCPCS: 36415; 80053; 80306; 80307; 81003; 84443; 85025; 90471; 90686; 93005; 97150; 97165; 99285

== ENCOUNTER → 2023-09-11 12:46 | Outpatient (BNVA) | payer OTHER, SELFPAY | PROVIDERS: PCP Family Medicine; Visit Provider Internal Medicine Rheumatology | DX: M06.041 Rheumatoid arthritis without rheumatoid factor, right hand (principal); M06.042 Rheumatoid arthritis without rheumatoid factor, left hand; Z79.899 Other long term (current) drug therapy; Z71.85 Encounter for immunization safety counseling | CPT/HCPCS: 99214 ==

== ENCOUNTER → 2023-12-19 08:27 | Outpatient (BNVA) | payer OTHER, SELFPAY | PROVIDERS: PCP Family Medicine; Visit Provider Internal Medicine Pulmonary Disease | DX: J41.0 Simple chronic bronchitis (principal); F17.210 Nicotine dependence, cigarettes, uncomplicated | CPT/HCPCS: 99214 ==

== ENCOUNTER → 2023-12-25 13:44 | Outpatient (BNVA) | payer OTHER, SELFPAY | PROVIDERS: PCP Family Medicine; Visit Provider Internal Medicine Rheumatology | DX: M06.041 Rheumatoid arthritis without rheumatoid factor, right hand (principal); M06.042 Rheumatoid arthritis without rheumatoid factor, left hand; Z79.899 Other long term (current) drug therapy; Z71.85 Encounter for immunization safety counseling | CPT/HCPCS: 99214 ==

== ENCOUNTER 2024-01-17 09:38 | Outpatient (CLI) | payer OTHER, SELFPAY ==
--- NOTE | 2024-01-17 10:00 | CT_ITS ---
WS: [id number] LDCT LUNG CANCER SCREENING HISTORY: Cancer Screen TECHNIQUE: Axial imaging performed from the apices to 1 cm below the costophrenic angles. Coronal and sagittal reformats are submitted with axial MIP series. All CT scans at [facility] use at least one of these dose optimization techniques: automated exposure control; mA and/or kV adjustment per patient size (includes targeted exams where dose is matched to clinical indication); or iterativ e reconstruction. DLP: 76.82 mGy.cm DIvol: Mean CTDIvol: 1.40 (mGy) COMPARISON: 09/08/2013 Diagnostic quality: Satisfactory Lungs: New, subtle slightly spiculated opacification LEFT upper lobe/lingula measures approximately 5 mm. There is an adjacent larger area of hazy attenuation and groundglass attenuation. Heart: Normal size heart with no pericardial effusion.. Advanced calcifications in the barrow coronar y arteries. Other findings: Moderate atherosclerosis thoracic aorta. Normal size pulmonary artery. Small hiatal h ernia. No adrenal mass. IMPRESSION: CT/CT lung screening [id number] LUNG-RADS: 3S-Probably Benign with Significant Findings FOLLOW UP: 6 Month LDCT OTHER FINDINGS (S MODIFIER): Dense heavily calcified coronary arteries. In part icular the LEFT anterior descending and the LEFT circumflex coronary arteries c ontain significant amount of calcified plaque. Plaque is also noted in the LEFT main coronary artery.
== END 2024-01-17 09:39 | disposition home or self-care (01) ==
LOC: RAD 09:38
PROVIDERS: PCP Family Medicine; Visit Provider Internal Medicine Pulmonary Disease
DX: Z12.2 Encounter for screening for malignant neoplasm of respiratory organs (principal); F17.210 Nicotine dependence, cigarettes, uncomplicated
CPT/HCPCS: 71271

== ENCOUNTER → 2024-04-15 13:31 | Outpatient (BNVA) | payer OTHER, SELFPAY | PROVIDERS: PCP Family Medicine; Visit Provider Internal Medicine Rheumatology | DX: Z79.899 Other long term (current) drug therapy (principal); M06.041 Rheumatoid arthritis without rheumatoid factor, right hand; M06.042 Rheumatoid arthritis without rheumatoid factor, left hand; Z71.85 Encounter for immunization safety counseling | CPT/HCPCS: 99214 ==

== ENCOUNTER → 2024-04-21 14:40 | Outpatient (BNVA) | payer OTHER, SELFPAY | PROVIDERS: PCP Family Medicine; Visit Provider Internal Medicine Rheumatology | DX: M06.041 Rheumatoid arthritis without rheumatoid factor, right hand (principal); M06.042 Rheumatoid arthritis without rheumatoid factor, left hand; Z79.899 Other long term (current) drug therapy; M06.9 Rheumatoid arthritis, unspecified; M25.511 Pain in right shoulder; Z71.89 Other specified counseling | CPT/HCPCS: 20610; 36415; 80076; 82565; 85025; 86140; J1010 ==

== ENCOUNTER → 2024-08-26 14:14 | Outpatient (BNVA) | payer OTHER, SELFPAY | PROVIDERS: PCP Family Medicine; Visit Provider Internal Medicine Rheumatology | DX: M06.041 Rheumatoid arthritis without rheumatoid factor, right hand (principal); M06.042 Rheumatoid arthritis without rheumatoid factor, left hand; Z79.899 Other long term (current) drug therapy; Z71.85 Encounter for immunization safety counseling | CPT/HCPCS: 73562; 80076; 82565; 85025; 85651; 86140; 99214 ==

== ENCOUNTER → 2024-09-08 14:34 | Outpatient (BNVA) | payer OTHER, SELFPAY | PROVIDERS: PCP Family Medicine; Visit Provider Internal Medicine Rheumatology | DX: M25.561 Pain in right knee (principal); Z71.89 Other specified counseling | CPT/HCPCS: 20610; J1010 ==

== ENCOUNTER → 2024-12-14 09:40 | Outpatient (BNVA) | payer OTHER, SELFPAY | PROVIDERS: PCP Family Medicine; Visit Provider Specialist | DX: M17.11 Unilateral primary osteoarthritis, right knee | CPT/HCPCS: 20610; 73560; 73565; 99204; J7327 ==

== ENCOUNTER → 2024-12-23 14:12 | Outpatient (BNVA) | payer OTHER, SELFPAY | PROVIDERS: PCP Family Medicine; Visit Provider Internal Medicine Rheumatology | DX: M06.041 Rheumatoid arthritis without rheumatoid factor, right hand (principal); M06.042 Rheumatoid arthritis without rheumatoid factor, left hand; Z79.899 Other long term (current) drug therapy; Z71.85 Encounter for immunization safety counseling | CPT/HCPCS: 99214 ==

== ENCOUNTER → 2025-03-09 10:29 | Outpatient (BNVA) | payer OTHER, SELFPAY | PROVIDERS: PCP Family Medicine; Referring Provider Family Medicine; Visit Provider Surgery | DX: Z12.11 Encounter for screening for malignant neoplasm of colon (principal); R03.0 Elevated blood-pressure reading, without diagnosis of hypertension | CPT/HCPCS: 99203 ==

== ENCOUNTER 2025-03-23 11:38 | Outpatient (CLI) | payer OTHER, SELFPAY ==
--- NOTE | 2025-03-23 11:41 | MR_ITS ---
WS: [id number] MRI BRAIN WITH AND WITHOUT CONTRAST HISTORY: MEMORY ISSUES COMPARISON: None available. TECHNIQUE: Multiplanar imaging performed through the brain with MultiHance 19 ml's IV. No acute infarcts are seen. Swift-white matter differentiation is well preserved. Minimal volume loss and small vessel disease. No prior infarct. No hippocampal atrophy. No susceptibility artifacts or prior lacunar infarcts. Ventricles and extra-axial spaces are normal. Clivus and pituitary gland are normal. Visualized posterior fossa and brainstem are also normal. Postcontrast images are negative for masses or vascular malformations. Dural venous sinuses are normal. Paranasal sinuses: Well aerated with no significant disease. Mastoid air cells: Small amount of fluid in the RIGHT mastoid air cells. Calvarium and scalp: Normal. MR/MR head wo/w con [id number] IMPRESSION: 1. No acute infarct or diffusion abnormality. 2. Very mild volume loss and small vessel disease. No hippocampal atrophy. 3. No prior infarcts or enhancing mass.
[2025-03-23] MEDS: gadobenate dimeglumine 20 mL vial IV (12:21)
== END 2025-03-23 11:39 | disposition home or self-care (01) ==
LOC: RAD 11:39
PROVIDERS: PCP Family Medicine; Visit Provider Family Medicine
DX: Z01.89 Encounter for other specified special examinations (principal); R93.0 Abnormal findings on diagnostic imaging of skull and head, not elsewhere classified; H74.8X1 Other specified disorders of right middle ear and mastoid
CPT/HCPCS: 70553

== ENCOUNTER 2025-03-25 08:13 | Day surgery (SDC) | payer OTHER, SELFPAY ==
[2025-03-25 08:23] VITALS: BMI 27.8
[2025-03-25 08:27] VITALS: BP 160/79; PULSE 71; RESP 18; TEMP 36.2; O2SAT 99
[2025-03-25] MEDS: sodium chloride 0.9% 1,000 ML 15 ML IV (08:28)
--- NOTE | 2025-03-25 08:30 | W.PM.OPSUD ---
Surgery/Procedure H&P Update DATE OF PROCEDURE: March 25, 2025 DATE H&P PERFORMED: 03/09/25 H&P UPDATE INFORMATION: I have reviewed H&P completed within last 30 days, I have examined patient prior to procedure, No changes to prior documentation, Changes to prior documentation as noted here and Risks and benefits of the procedure reviewed PLANNED PROCEDURE: Operation Date: 03/25/25 09:55 Proposed Procedures p Colonoscopy [id number] G0121 Z12.11(Not Applicable) - Ho Santos MD
--- NOTE | 2025-03-25 09:15 | ANES.PREANE2 ---
Pre-Anesthetic Assessment Height/Weight: Height 1.8 m Weight 90.718 kg Temp Pulse Resp BP Pulse Ox 97.2 F L 71 18 160/79 99 03/25/25 08:27 03/25/25 08:27 03/25/25 08:27 03/25/25 08:27 03/25/25 08:27 Operation Date: 03/25/25 09:55 Proposed Procedures p Colonoscopy 86265 G0121 Z12.11(Not Applicable) - Ho Santos MD Familial anesthetic complications: none Was Beta Danni taken within 24 hours: N/A (took yesterday) Was Clonidine taken within 24 hours: N/A Last intake: Intake Last Liquid Date 03/24/25 Last Liquid Time 18:00 Last Solid Date 03/23/25 Last Solid Time 16:00 Social Tobacco (1/2ppd) and No alcohol Exam alert and oriented x 3 Airway Submandibular: within normal limits Cervical ROM: within normal limits Mallampati: Class III Dentition: false Pulmonary Asthma and Chronic Obstructive Pulmonary Disease CV/HEM Hypertension None reported Hepatic None reported GI None reported Metabolic None reported Musc/skel Lower Back Pain and Rheumatoid Arthritis Neuropsych Anxiety, Depression and Transient Ischemic Attack (2008- no residuals) PTSD Anesthetic Plan ASA status: 3 Anesthesia: Anesthesia Evaluation and MAC Medications/Allergies Home Medications ?Medication ?Instructions ?Recorded ?Confirmed ?Last Taken ?Type cetirizine 10 mg tablet (Zyrtec) 10 mg PO DAILY@20 01/21/21 03/22/25 03/23/25 History ipratropium 20 mcg-albuterol 100 1 puff inhalation QID PRN 01/21/21 03/22/25 03/23/25 History mcg/actuation mist for inhalation Shortness Of Breath (Combivent Respimat) metoprolol succinate 50 mg 50 mg PO DAILY #30 tabs 01/22/21 03/22/25 03/23/25 Rx tablet,extended release 24 hr montelukast 10 mg tablet 10 mg PO DAILY 03/09/21 03/22/25 03/23/25 History prazosin 2 mg capsule 4 mg PO DAILY 03/09/21 03/22/25 03/23/25 History tiotropium 2.5 mcg-olodaterol 2.5 2 puff inhalation DAILY 180 days 04/11/22 03/22/25 03/23/25 Rx mcg/actuation mist for inhalation #24 grams (Stiolto Respimat) atorvastatin 40 mg tablet 80 mg (2 x 40 mg) PO BEDTIME 30 07/25/23 03/22/25 03/23/25 Rx days #60 tabs chlordiazepoxide HCl 25 mg capsule 25 mg PO DAILY 30 days #30 caps 07/25/23 03/22/25 03/23/25 Rx citalopram 40 mg tablet 40 mg PO DAILY 30 days #30 tabs 07/25/23 03/22/25 03/23/25 Rx hydroxyzine pamoate 25 mg capsule 50 mg (2 x 25 mg) PO Q6H PRN 07/25/23 03/22/25 03/23/25 Rx Anxiety 30 days #120 caps pantoprazole 40 mg tablet,delayed 40 mg PO DAILY 30 days #30 tabs 07/25/23 03/22/25 03/23/25 Rx release pyridoxine (vitamin B6) 100 mg 300 mg (3 x 100 mg) PO BID 30 days 07/25/23 03/22/25 03/23/25 Rx tablet #180 tabs quetiapine 400 mg tablet 400 mg PO BEDTIME 30 days #30 tabs 07/25/23 03/22/25 03/23/25 Rx thiamine mononitrate (vit B1) 100 100 mg PO DAILY 30 days #30 tabs 07/25/23 03/22/25 03/23/25 Rx mg tablet (Vitamin B-1 (mononitrate)) celecoxib 200 mg capsule (Celebrex) 200 mg PO BID #60 caps 04/15/24 03/22/25 03/23/25 Rx Held on 08/26/24. Instructions: Doctor's Order leflunomide 20 mg tablet 20 mg PO DAILY #90 tabs 12/23/24 03/22/25 03/23/25 Rx prednisone 10 mg tablet See Rx Instructions PO .COMPLEX 12/23/24 03/22/25 03/23/25 Rx PRN joint pain #60 tabs tramadol 50 mg tablet 50 mg PO Q6H PRN Pain #60 tabs 12/23/24 03/22/25 03/23/25 Rx diclofenac sodium 1 % topical gel 2 g topical QID PRN Pain 03/22/25 03/22/25 03/23/25 History (Arthritis Pain (diclofenac)) Allergies Allergy/AdvReac Type Severity Reaction Status Date / Time mold Allergy ALGY-Hives Verified 03/25/25 08:20 Penicillins Allergy ALGY-Anaphy Verified 03/25/25 08:20 laxis Current Medications Generic Name Dose Route Start Last Admin Trade Name Freq PRN Reason Stop Dose Admin Sodium Chloride 1,000 mls @ 15 mls/hr 03/25/25 08:15 03/25/25 08:28 Sodium Chloride 0.9% IV 03/26/25 08:14 15 mls/hr .Q24H PRN Administration COLONOSCOPY FLUIDS PFSH Anesthesia Medical History Major depressive disorder COVID-19 Chronic steroid use Immunization counseling High risk medication use Seronegative rheumatoid arthritis of both hands Chronic obstructive pulmonary disease Coronary artery disease Elevated troponin Atypical chest pain Hypertensive urgency Resolved Surgical History (Updated 03/09/25 @ 10:[address]) History of neck surgery Family History Other CAD (coronary artery disease) Cancer Dementia Hyperlipidemia Hypertension Denies family history of Diabetes Chronic kidney disease (CKD) Anesthesia complication Bleeding disorder Lung disease Stroke Social History Smoking and tobacco/nicotine status: light tobacco/nicotine user cigarettes Packs smoked per day: 1 Years cigarettes smoked: 50 and cigars Alcohol intake: never Substance/Drug Use: never Lives independently: Yes Household members: none Marital status: Single service: Yes Current occupational status: retired 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
[2025-03-25 09:56] VITALS: BP 147/83; PULSE 104; RESP 18; TEMP 36.3; O2SAT 97
[2025-03-25 10:06] VITALS: BP 138/70; PULSE 78; RESP 16; O2SAT 97
--- NOTE | 2025-03-25 10:30 | ANE.PACU2 ---
Inpatient post-anesthesia follow up: Airway intact: Yes Vital signs: Temperature 97.4 F Pulse Rate 78 Respiratory Rate 16 Blood Pressure 138/70 Pulse Oximetry 97 Oxygen Delivery Me thod Room Air Oxygen Flow Rate Fraction of Inspir ed Oxygen Hydration adequate: Yes Nausea and vomiting: No Pain level: 1 Mental status: Baseline
== END 2025-03-25 10:30 | disposition home or self-care (01) ==
PROVIDERS: PCP Family Medicine; Visit Provider Surgery
PROC: 0DJD8ZZ Inspection of Lower Intestinal Tract, Via Natural or Artificial Opening Endoscopic (ICD-10-PCS; CPT 45378; principal; 2025-03-25 09:55)
DX: Z12.11 Encounter for screening for malignant neoplasm of colon (principal); K62.1 Rectal polyp; J44.9 Chronic obstructive pulmonary disease, unspecified; I10 Essential (primary) hypertension; M06.042 Rheumatoid arthritis without rheumatoid factor, left hand; M06.041 Rheumatoid arthritis without rheumatoid factor, right hand; Z86.73 Personal history of transient ischemic attack (TIA), and cerebral infarction without residual deficits; Z88.0 Allergy status to penicillin; Z79.899 Other long term (current) drug therapy; F17.210 Nicotine dependence, cigarettes, uncomplicated
CPT/HCPCS: 45380; 88305; J2250; J2704; J7030

== ENCOUNTER → 2025-04-07 13:05 | Outpatient (BNVA) | payer OTHER, SELFPAY | PROVIDERS: PCP Family Medicine; Visit Provider Internal Medicine Rheumatology | DX: M06.041 Rheumatoid arthritis without rheumatoid factor, right hand (principal); M06.042 Rheumatoid arthritis without rheumatoid factor, left hand; Z79.899 Other long term (current) drug therapy; Z71.85 Encounter for immunization safety counseling | CPT/HCPCS: 36415; 80076; 82306; 82565; 85025; 85651; 86140; 99214 ==

== ENCOUNTER → 2025-04-13 08:19 | Outpatient (BNVA) | payer OTHER, SELFPAY | PROVIDERS: PCP Family Medicine; Visit Provider Surgery | DX: Z09 Encounter for follow-up examination after completed treatment for conditions other than malignant neoplasm (principal) | CPT/HCPCS: 99213 ==

== ENCOUNTER 2025-09-22 11:10 | Outpatient (CLI) | payer OTHER, SELFPAY ==
[2025-09-22 11:40] LABS: Hematocrit 32.0 % (37-53); Hemoglobin 10.30 g/dL (11.27-16.99); Mean Corpuscular HGB Conc 32.2 g/dL (30-55); Mean Corpuscular Hemoglobin 27.7 pg (27-33); Mean Corpuscular Volume 86.0 fl (82-101); Nucleated Red Blood Cells % 0 %; Platelet Count 230 10^3/cmm (157-399); Red Blood Count 3.72 10^6/uL (3.85-5.65); White Blood Count 10.30 10^3/uL (3.29-11.43)
[2025-09-22 12:04] LABS: Alanine Aminotransferase 19 U/L (0-41); Albumin Level 4.0 g/dL (3.5-5.2); Alkaline Phosphatase 75 U/L (40-130); Aspartate Amino Transferase 20 U/L (0-40); Globulin 2.6 g/dL (1.3-4.6); Total Protein 6.6 g/dL (6.6-8.7)
[2025-09-22 15:05] LABS: Hematocrit 32.1 % (37-53); Hemoglobin 10.20 g/dL (11.27-16.99); Mean Corpuscular HGB Conc 31.8 g/dL (30-55); Mean Corpuscular Hemoglobin 26.7 pg (27-33); Mean Corpuscular Volume 84.0 fl (82-101); Nucleated Red Blood Cells % 0 %; Platelet Count 162 10^3/cmm (157-399); Red Blood Count 3.82 10^6/uL (3.85-5.65); White Blood Count 9.59 10^3/uL (3.29-11.43)
[2025-09-22 15:53] LABS: Hepatitis B Surface Antigen Non-Reactive (Nonreactive)
== END 2025-09-22 11:11 | disposition home or self-care (01) ==
LOC: LAB 11:12
PROVIDERS: PCP Family Medicine; Visit Provider Internal Medicine Rheumatology
DX: M06.041 Rheumatoid arthritis without rheumatoid factor, right hand (principal); M06.042 Rheumatoid arthritis without rheumatoid factor, left hand; Z79.899 Other long term (current) drug therapy; Z71.85 Encounter for immunization safety counseling; D69.6 Thrombocytopenia, unspecified
CPT/HCPCS: 36415; 80076; 82565; 85025; 85651; 86140; 86480; 86704; 86803; 87340; 99214